=== PATIENT | male | born 1940 | race Caucasian/White ===

== ENCOUNTER → 2017-01-22 | Outpatient (CLI) | payer OTHER ==
[~2017-01-22] MED LIST: ALPRAZOLAM1 M2 PO; ATORVASTATIN CA40 MG PO; CARB/LEVO PO; CARDIZEM CD180 MG PO; CARISOPRODOL 3350 M1 PO; CARISOPRODOL 3350 MG PO; CARTIA XT180 M1 PO; CIPRO500 MG PO; CLONAZEPAM 0.50.5 M1 PO; CLONIDINE PO; CLONIDINE0.1 PO; DILAUDID2 MG PO; DILT-XR180 MG PO; FLAGYL500 MG PO; HYDROCODON-ACE1 EAC5 PO; HYDROCODONE-AP1 EAC6 PO; KLONOPIN0.5 MG PO; KLOR-CON 10 ER10 MEQ PO; KLOR-CON 1010 MEQ PO; LASIX 20 MG TAB20 MG PO; LASIX 40 MG TAB40 M2 PO; LEXAPRO 10 MG T10 M2 PO; LEXAPRO20 MG PO; LIORESAL 10 MG10 MG PO; LISINOPRIL10 MG PO; METOLAZONE 2.52.5 M1 PO; MIRAPEX0.5 MG PO; MOBIC15 MG PO; MORPHINE PUMP; MORPHINE SULFAT15 M3 PO; NEURONTIN 300300 M1 PO; NEURONTIN 400400 M1 PO; NORCO 10-325 T1 EAC1 PO; NORCO 10-325 T1 EACH PO; PAIN PUMP; POTASSIUM20 PO; PRAMIPEXOLE PO; REMERON 30 MG T30 M1 PO; REMERON15 MG PO; RYTARY ER 36.21 EACH PO; SIMVASTATIN40 MG PO; SINEMET 25-1001 EAC1 PO; SINEMET CR 50/21 TAB PO; SPIRIVA INH; VOLTAREN GEL 1100 G2 TOP; XANAX 0.5 MG0.5 M1 PO; XANAX1 MG PO; ZANAFLEX4 MG PO; ZOCOR40 MG PO; [UNRECOGNIZED DRUG - OTHER] MC
--- NOTE | 2017-01-24 09:35 | PAINCON ---
[address] [address] PAIN MANAGEMENT CONSULTATION Name: ELVIE ECHAVARRIA Room: [facility] Jenise#: [id number] Admission: 01/22/17 Attend Phys: Grace Rodriguez Discharge: Date of : 40 Report #: [id number] THIS REPORT FOR: //name// CC: Juarez Gan The patient is a very pleasant 76-year-old gentleman long known to the pain clinic for symptomatic lumbar radiculopathy, status post decompressive laminectomy, has an intrathecal pump in place. He was seen on 01/15/2017 with increasing lumbar radicular pain. We elected to move forward with epidural injection under fluoroscopy today. He presents to the pain clinic today noting pain continues to be problematic and rates it at a 5 on a VAS. The pain is primarily low back, right buttock and leg. PHYSICAL EXAMINATION: Unchanged from last visit, 5 feet 8 inches, 188 pound gentleman. Blood pressure 146/90 and pulse 79. Moderately antalgic gait, positive straight leg raise on the right with decreased strength to plantar flexion and lower extremity flexion. ASSESSMENT: Symptomatic lumbar radiculopathy, status post decompressive laminectomy. PROCEDURE: Lumbar epidural injection under fluoroscopy. PROCEDURE NOTE: After both written and informed consent to include risk of spinal cord damage, increased pain, weakness and dural puncture, the patient was taken to the fluoroscopy suite, placed in the prone position. After sterile prep and drape, a skin wheal with lidocaine was raised. A 22-gauge epidural Tuohy needle was inserted in the midline at L4-L5 with good loss to resistance. Negative aspiration for cerebrospinal fluid or blood was noted. Then 1 mL of Omnipaque under biplanar fluoroscopy showed good spread within the epidural space. This was followed with 80 mg of triamcinolone plus 1 mL of 1.5% preservative-free Xylocaine, 0.5 mL Xylocaine was then injected to flush the needle; it was removed. The patient was monitored for an appropriate period of time and discharged in good and stable condition. Discharged in stable condition. Follow up in 4 weeks for reevaluation earlier if needed. <ELECTRONICALLY SIGNED> By: Galo Gan DO 01/24/17 0935 [id number] 0101Galo Gan DO /nt
== END ==
LOC: M.PC 03:36
DX: M54.16 Radiculopathy, lumbar region (principal); M96.1 Postlaminectomy syndrome, not elsewhere classified

== ENCOUNTER → 2017-02-19 | Outpatient (CLI) | payer OTHER ==
--- NOTE | 2017-02-21 09:59 | PAINCON ---
[address] [address] PAIN MANAGEMENT CONSULTATION Name: ECHAVARRIAELVIE Lopez Room: [facility] EDNA Burden#: [id number] Admission: 02/19/17 Attend Phys: Garce Rodriguez Discharge: Date of : 40 Report #: [id number] THIS REPORT FOR: //name// CC: Juarez Gan DATE OF SERVICE: 02/19/2017 The patient is a very pleasant 76-year-old gentleman, being treated for lumbar radiculopathy status post decompressive laminectomy, requiring high risk complex medication management, intrathecal pump management. He has a comorbidity of Parkinson disease and degenerative joint disease affecting bilateral hips and knees. Last seen in pain clinic 01/22/2017. Did an epidural injection for ongoing radicular symptoms. Last intrathecal pump refill was 12/25/2016. The patient returns to pain clinic today. He has pain that continues to be problematic. Epidural injection only afforded some nominal relief. We tried rotating to morphine immediate release for breakthrough pain, though the patient notes that this was not effective and caused some GI issues. He discontinued that agent. He is continuing with hydrocodone for breakthrough pain. Last visit, I tried rotating from Xanax to Klonopin at bedtime for insomnia. The patient notes that this has been not well tolerated at all either. He is having some increasing Parkinson disease overtime. He is seeing a new neurologist. He did ask today that I renew his Sinemet, he has been stable on this dose for some time, 25/100 mg tablets, 2 tablets 3 times a day. In absence of his neurologist at present, I will renew that prescription, but did mandate the patient to follow up with his neurologist. PHYSICAL EXAMINATION: Shows 5 feet 8 inches, 190 pound gentleman, BMI is 28.9 kilograms per meter squared. Blood pressure 154/77, pulse 70, respirations 16. Moderately endomorphic build, though he has lost a fair bit of weight, rises from chair using armrest, antalgic gait, does have a little parkinsonian tremor, has a little loss of proprioception in lower extremity; however, lower extremity strength is generally symmetric. Modestly positive straight leg raise on the right. We reviewed the fact that opiate medications are being used to provide analgesia adequate to support activities of daily living, not attempting to achieve a specific pain score on the 0-10 Visual Analog Scale. The current opiate medications are providing sufficient analgesia [place] [address] PAIN MANAGEMENT CONSULTATION Name: ELVIE ECHAVARRIA Room: [facility]#: [id number] Admission: 02/19/17 Attend Phys: Grace Rodriguez Discharge: Date of : 40 Report #: [id number] participate in activities of daily living. The patient is not exhibiting any aberrant behavior suggestive of drug diversion. The patient is not having any adverse reactions to medications. The patient is not suffering from daytime somnolence or mental acuity changes. The patient is managing opiate-induced constipation with appropriate pmku-iam-apcpusu agents and dietary considerations. The patient was counseled on concern for caution with operating a motor vehicle while using opiate medications. A physical exam was performed and the patient's functional status was evaluated. All patients with back pain were advised against the bed rest greater than 4 days and were advised to return to normal activities. Pain score assessment was noted and the treatment plan was reviewed with the patient. All current medications, both prescribed and OTC were reviewed and reconciled on the electronic medical record. Tobacco screening was accomplished and smoking cessation was advised when indicated. BMI was noted and diet/exercise modification was recommended for all patients following outside normal parameters. I reviewed with the patient today their responsibilities to safeguard prescription medications, reviewed their responsibility to utilize medications only as prescribed by the physician. They are to seek and receive pain medications only from 1 physician group ( [facility]). They are to use 1 pharmacy and keep the clinic informed if they change pharmacies. Their responsibilities include making followup visits in a timely fashion and to avoid abrupt discontinuation of medication usage. Their responsibilities further include bringing their medications (bottles from the pharmacy with residual pills) to the visit for possible confirmation of pill counts and the patient understands it is their responsibility to submit to random drug screens to ensure both that the medications prescribed are present, and that no other controlled substances are present. All prescriptions provided today were generated electronically. ASSESSMENT: Symptomatic lumbar radiculopathy status post decompressive laminectomy, axial back pain requiring high risk complex medication management and intrathecal pump management, and comorbidity of Parkinson disease. RECOMMENDATIONS: 1. Discontinue Klonopin, will resume Xanax 0.5 at bedtime. 2. I have taken the liberty of renewing his Sinemet as noted in the body of the dictation. 3. Continue hydrocodone p.r.n. for breakthrough pain, does not require prescription for same. PROCEDURE: Intrathecal pump reprogrammed, currently has a flex program from about 5:00 p.m. through midnight. Overall, total daily dose is 2.83 mg. I increased the pump 7% overall by adding [place] [address] PAIN MANAGEMENT CONSULTATION Name: ELVIE ECHAVARRIA Room: [facility]#: [id number] Admission: 02/19/17 Attend Phys: Grace Rodriguez Discharge: Date of : 40 Report #: [id number] midnight to 6:00 a.m. at 0.14 mg per hour. Again, this increases the overall daily dosage from 2.83 to 3.015 mg per day. The patient is discharged today in good stable condition; new refill date is now 05/03/2017. Follow up at that time, earlier if needed. <ELECTRONICALLY SIGNED> By: Galo Gan DO 02/21/17 0959 1222 1740Galo Gan DO /nt
== END | disposition home or self-care (01) ==
LOC: M.PC 02:32
DX: M54.16 Radiculopathy, lumbar region (principal); M17.0 Bilateral primary osteoarthritis of knee; M16.0 Bilateral primary osteoarthritis of hip; G20 Parkinson's disease; Z79.891 Long term (current) use of opiate analgesic; Z98.890 Other specified postprocedural states

== ENCOUNTER → 2017-04-30 | Outpatient (CLI) | payer MEDICARE, OTHER ==
--- NOTE | 2017-05-05 07:00 | PAINCON ---
[address] [address] PAIN MANAGEMENT CONSULTATION Name: ELVIE ECHAVARRIA Room: [facility] E[facility] Burden#: [id number] Admission: 04/30/17 Attend Phys: Grace Rodriguez Discharge: Date of : 40 Report #: [id number] THIS REPORT FOR: //name// CC: Juarez Gan DATE OF SERVICE: 04/30/2017 The patient is a very pleasant 76-year-old gentleman, long known to the pain clinic, being treated for axial back pain, lumbar radiculopathy, status post decompressive laminectomy, chronic anxiety. Axial back pain, component of Parkinson's, which seems to be getting a little bit worse. Requires intrathecal pump management. Has an intrathecal pump, last filled 12/25/2016. At last visit 02/19/2017, we did increase the pump 7%, currently has a flex dose delivering a total daily dose of 3.015 mg of morphine a day. The patient returns to pain clinic today. His Parkinson's is getting a little bit worse. He did fall one time going up the stairs since we last saw him. He does have an appointment, I believe next month to see a new neurologist. May need a dose adjustment on his parkinsonian medications. He does struggle with some chronic anxiety concerns. I rotated from Klonopin to Xanax 0.5 mg. This was denied by his insurance company as the primary diagnosis appeared as insomnia, it is primarily for anxiety concerns. Axial back pain continues to be problematic with some spasm. Insurance company did deny Soma, I am actually relatively happy they did this as Soma can be a little bit of a dangerous agent with metabolite being meprobamate, which is somewhat habituating. We will rotate to baclofen 10 mg t.i.d. for spasm on a p.r.n. basis. He does take hydrocodone 10/325 maximum of 4 a day. With the Medtronic intrathecal pumps, we know they tend to over-deliver a little bit immediately after fill, they tend to under-deliver a little bit near the end of the fill cycle. In respect to this, the patient typically takes less hydrocodone immediately after the pump fill and does take hydrocodone a little more frequently near the end of the cycle. Again, he is on about of 4-month fill cycle. PHYSICAL EXAMINATION: Does note a pleasant 76-year-old gentleman, moderately endomorphic build. Does have parkinsonian tremor and shuffle. He is alert and oriented. Does suffer with a little anxiety. Has a bit of a stutter, which predated the Parkinson's. Has diffuse axial back pain. The lower extremity strength is generally preserved. Subjective pain score is 6 on a VAS. Vital signs are stable as noted in the medical record. He is alert and oriented to person, place and time, judged [place] [address] PAIN MANAGEMENT CONSULTATION Name: JERICHOELVIE H Room: [facility] E[facility] Burden#: [id number] Admission: 04/30/17 Attend Phys: Grace Rodriguez Discharge: Date of : 40 Report #: [id number] He does not use tobacco products. Medication list was reconciled today. We reviewed the fact that opiate medications are being used to provide analgesia adequate to support activities of daily living, not attempting to achieve a specific pain score on the 0-10 Visual Analog Scale. The current opiate medications are providing sufficient analgesia to allow the patient to participate in activities of daily living. The patient is not exhibiting any aberrant behavior suggestive of drug diversion. The patient is not having any adverse reactions to medications. The patient is not suffering from daytime somnolence or mental acuity changes. The patient is managing opiate-induced constipation with appropriate jigk-owf-gbgawvy agents and dietary considerations. The patient was counseled on concern for caution with operating a motor vehicle while using opiate medications. A physical exam was performed and the patient's functional status was evaluated. All patients with back pain were advised against the bed rest greater than 4 days and were advised to return to normal activities. Pain score assessment was noted and the treatment plan was reviewed with the patient. All current medications, both prescribed and OTC were reviewed and reconciled on the electronic medical record. Tobacco screening was accomplished and smoking cessation was advised when indicated. BMI was noted and diet/exercise modification was recommended for all patients following outside normal parameters. I reviewed with the patient today their responsibilities to safeguard prescription medications, reviewed their responsibility to utilize medications only as prescribed by the physician. They are to seek and receive pain medications only from 1 physician group ( [facility]). They are to use 1 pharmacy and keep the clinic informed if they change pharmacies. Their responsibilities include making followup visits in a timely fashion and to avoid abrupt discontinuation of medication usage. Their responsibilities further include bringing their medications (bottles from the pharmacy with residual pills) to the visit for possible confirmation of pill counts and the patient understands it is their responsibility to submit to random drug screens to ensure both that the medications prescribed are present, and that no other controlled substances are present. All prescriptions provided today were generated electronically. ASSESSMENT: Lumbar radiculopathy, status post decompressive laminectomy, chronic pain requiring complex medication management, intrathecal pump management, axial back pain and anxiety. RECOMMENDATIONS: 1. Continue Xanax 0.5 mg 1 a day. 2. Rotate from Soma to baclofen 10 mg up to t.i.d. only as needed for spasm. Continue hydrocodone 10/325 up to 4 a day as needed for breakthrough pain. [address] [address] PAIN MANAGEMENT CONSULTATION Name: ELVIE ECHAVARRIA Room: [facility]#: [id number] Admission: 04/30/17 Attend Phys: Grace Rodriguez Discharge: Date of : 40 Report #: [id number] Pump refill by the nurse today. The pump was refilled by the RN, Irene under my direct supervision in a sterile fashion using a Medtronic refill kit. Frequent aspiration showed easy return of the injectate. Pump was reprogrammed to deliver current rate at 3.015 mg of morphine a day via a flex program delivering a little more infusate in the evening hours. The needle was removed. The area was cleansed, Band-Aids applied. The patient monitored for an appropriate period of time, discharged in good and stable condition. <ELECTRONICALLY SIGNED> By: Galo Gan DO 05/05/17 0700 0840 0916Galo Gan DO /nt
== END | disposition home or self-care (01) ==
LOC: M.PC 01:20
DX: Z45.1 Encounter for adjustment and management of infusion pump (principal); M54.16 Radiculopathy, lumbar region; Z98.890 Other specified postprocedural states; F41.9 Anxiety disorder, unspecified; Z79.899 Other long term (current) drug therapy; G20 Parkinson's disease; M96.1 Postlaminectomy syndrome, not elsewhere classified

== ENCOUNTER 2017-05-04 04:19 | Emergency (ER) | payer MEDICARE, OTHER ==
[~2017-05-04] VITALS: Ht 180.3 cm; Wt 87.1 kg
[~2017-05-04 04:19] MED LIST changes: -CARTIA XT180 M1 PO; -CIPRO500 MG PO; -FLAGYL500 MG PO; -NORCO 10-325 T1 EAC1 PO; -RYTARY ER 36.21 EACH PO; -ZANAFLEX4 MG PO
[2017-05-04 04:37] VITALS: BP 128/74
[2017-05-04] MEDS ORDERED: CARISOPRODOL 3350 MG PO (04:42)
[2017-05-04] MEDS ORDERED: NORCO 10-325 T1 EACH PO (04:42)
[2017-05-04] MEDS ORDERED: CARTIA XT180 M1 PO (04:42)
[2017-05-04 05:04] LABS: URINE BILIRUBIN NEGATIVE (Negative); URINE BLOOD NEGATIVE (Negative); URINE CLARITY CLEAR; URINE COLOR YELLOW; URINE GLUCOSE-RANDOM NEGATIVE (Negative); URINE KETONES TRACE (Negative); URINE LEUKOCYTES-REFLEX NEGATIVE (Negative); URINE NITRITE-REFLEX NEGATIVE (Negative); URINE PROTEIN NEGATIVE (Negative)
[2017-05-04 05:07] LABS: ABSOLUTE BASOPHILS 0.1 thou/uL (0.0-0.2); ABSOLUTE EOSINOPHILS 0.2 thou/uL (0.0-0.7); ABSOLUTE LYMPHOCYTES 1.4 thou/uL (0.8-5.3); ABSOLUTE MONOCYTES 0.4 thou/uL (0.0-1.2); ABSOLUTE NEUTROPHILS 2.6 thou/uL (1.6-8.1); BASOPHILS 1.1 %; EOSINOPHILS 3.9 %; HEMATOCRIT 39.9 % (42.0-52.0); HEMOGLOBIN 13.2 gm/dL (14.0-18.0); LYMPHOCYTES 30.4 %; MCH 29.6 pg (26.0-34.0); MCV 89.7 fL (80.0-100.0); MONOCYTES 9.4 %; MPV 6.5 fl. (7.2-11.1); NUCLEATED RBCS 0 /100WBC; PLATELET COUNT* 222 thou/uL (150-400); POLYS 55.2 %; RBC 4.45 mil/uL (4.50-6.00); RDW-CV 14.2 % (10.5-14.5); WBC 4.7 thou/uL (4.0-11.0)
[2017-05-04 05:21] LABS: ANION GAP 8 mmol/L (7-16); BUN 16 mg/dL (7-18); CALCIUM 8.4 mg/dL (8.5-10.1); CHLORIDE 108 mmol/L (98-107); CO2 29 mmol/L (21-32); CREATININE 0.6 mg/dL (0.6-1.3); GLUCOSE 106 mg/dL (70-99); POTASSIUM 3.7 mmol/L (3.5-5.1); SODIUM 145 mmol/L (136-145)
[2017-05-04 05:28] LABS: ALBUMIN 3.4 g/dL (3.4-5.0); ALKALINE PHOSPHATASE 62 U/L (46-116); LIPASE 81 U/L (73-393); SGOT 15 U/L (15-37); SGPT 9 U/L (30-65); TOTAL BILIRUBIN 0.4 mg/dL (<0.1-1.0); TOTAL PROTEIN 6.3 g/dL (6.4-8.2); TROPONIN-I LEVEL <0.06 ng/mL (<0.06)
--- NOTE | 2017-05-04 09:12 | NUR ---
PT IS WANTING TO LEAVE AND NOT BE ADMITTED. DR. AIKEN CONTACTED AND WILL SEE THE PT.
--- NOTE | 2017-05-04 12:46 | EKG ---
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 : 1940 Requested By: Jony Paredes Order Number: [id number] MD: Lavell Peoples Measurements Intervals Dawn Rate: 48 P: 57 UT: 237 QRS: 13 QRSD: 101 T: 8 QT: 439 QTc: 393 Interpretive Statements Sinus bradycardia Atrial premature complex Prolonged UT interval Compared to ECG 12/07/2015 10:07:34 Atrial premature complex(es) now present First degree AV block now present Sinus rhythm no longer present Right ventricular hypertrophy no longer present Electronically Signed On 05-04-2017 12:46:40 CDT by Lavell Peoples [email or web address] <ELECTRONICALLY SIGNED> By: Lavell Peoples MD, FAC 05/04/17 1246 9 9 Lavell Peoples MD, FAC /EPI
[2017-05-04 13:30] VITALS: BP 135/66
[2017-05-04] MEDS ORDERED: CIPRO500 MG PO (13:54)
[2017-05-04] MEDS ORDERED: FLAGYL500 MG PO (13:55)
[2017-05-04 14:01] VITALS: BP 141/71
[2017-05-04 15:04] VITALS: BP 141/71
--- NOTE | 2017-05-04 15:09 | NUR ---
DISCHARGED AMBULATING WITH FAMILY. PRESCRIPTION GIVEN FOR CIPRO & FLAGYL. BELONGINGS TAKEN WITH PATIENT.
[2017-06-25] MEDS ORDERED: NORCO 10-325 T1 EACH PO (08:33)
[2017-06-25] MEDS ORDERED: ZANAFLEX4 MG PO (08:33)
[2017-06-25] MEDS ORDERED: XANAX 0.5 MG0.5 M1 PO (08:33)
[2017-08-06] MEDS ORDERED: ZANAFLEX4 MG PO (09:11)
[2017-08-06] MEDS ORDERED: XANAX 0.5 MG0.5 M1 PO (09:11)
[2017-08-06] MEDS ORDERED: NORCO 10-325 T1 EACH PO (09:11)
[2017-08-06] MEDS ORDERED: NORCO 10-325 T1 EAC1 PO (09:11)
[2017-08-06] MEDS ORDERED: RYTARY ER 36.21 EACH PO (16:08)
[2017-08-06] MEDS ORDERED: LIORESAL 10 MG10 MG PO (16:09)
[2017-08-06] MEDS ORDERED: VOLTAREN GEL 1100 G2 TOP (16:09)
[2017-08-06] MEDS ORDERED: KLOR-CON 1010 MEQ PO (16:10)
[2017-08-06] MEDS ORDERED: LASIX 40 MG TAB40 M2 PO (16:10)
== END 2017-05-04 15:07 | disposition home or self-care (01) ==
LOC: M.ERS 04:19 → M.TBA-ER 07:08 → M.ERS 15:07
PROVIDERS: Emergency Medicine Emergency Medical Services
DX: R10.31 Right lower quadrant pain (principal); G20 Parkinson's disease; I48.91 Unspecified atrial fibrillation; I10 Essential (primary) hypertension; G25.81 Restless legs syndrome; Z85.828 Personal history of other malignant neoplasm of skin; Z96.651 Presence of right artificial knee joint; Z88.1 Allergy status to other antibiotic agents; Z88.5 Allergy status to narcotic agent; Z88.8 Allergy status to other drugs, medicaments and biological substances

== ENCOUNTER → 2017-06-25 | Outpatient (CLI) | payer MEDICARE, OTHER ==
[~2017-06-25] MED LIST changes: +CARTIA XT180 M1 PO; +CIPRO500 MG PO; +FLAGYL500 MG PO; +NORCO 10-325 T1 EAC1 PO; +RYTARY ER 36.21 EACH PO; +ZANAFLEX4 MG PO
--- NOTE | 2017-06-26 07:19 | PAINCON ---
[address] [address] PAIN MANAGEMENT CONSULTATION Name: ELVIE STAFFORD Room: [facility] EDNA Burden#: [id number] Admission: 06/25/17 Attend Phys: Grace Rodriguez Discharge: Date of : 40 Report #: [id number] THIS REPORT FOR: //name// CC: Juarez Gan DATE OF SERVICE: 06/25/2017 The patient is a very pleasant 76-year-old gentleman, long treated for lumbar radiculopathy status post decompressive laminectomy with chronic axial back pain. He has an intrathecal pump in place. The patient was seen for prolonged visit today from 08:10-08:40. Greater than 50% of this time was spent counseling the patient and reviewing therapeutic options. The patient presents to pain clinic today for ongoing medication management. He has an intrathecal pump in place. This was implanted by myself many years ago and revised by Dr. Zavaleta approximately 2 years ago. The predicted pump life is about 3 years (36 months). I will be leaving the practice area and I will ask Dr. Love to endeavor to help us find a pain management physician to continue to manage the patient's pump as it has been quite efficacious for him. The patient does return to the Pain Clinic today. He notes overall functional status is good. He has been actively losing weight. He is down to 185 pounds. His goal is 180 pounds. He does note that immediately after filling the pump, he does a little bit better and near the end of the pump refill cycle, seems to have a little more pain. Again, this phenomenon has been noted with [employer] pumps. They do tend to deliver a little more at the beginning of the cycle and a little less at the end of cycle. We have consistently managed the patient by increasing his pump about mid cycle anywhere from 7-10% with great caution noted to decrease the infusate on refill back to the pre-increased settings. PHYSICAL EXAMINATION: Today notes a pleasant 76-year-old gentleman. Again, he has been losing weight and increasing activity. Vital signs are stable. He does have a notable parkinsonian tremor, which seems to be getting worse. He tells me he is being switched on his Parkinson medicine to Rytary (an extended release carbidopa-levodopa product). He is hopeful that he will continue to get a little better control of his tremor. He has not fallen since we last saw him, but his gait is a little tenuous. It is tandem. Lower extremity strength is symmetric. Lumbar flexion is modestly limited. Diffuse tenderness across the low back. He is otherwise alert and [facility] [address] [place] [address] PAIN MANAGEMENT CONSULTATION Name: ELVIE STAFFORD Room: [facility] EDNA Burden#: [id number] Admission: 06/25/17 Attend Phys: Grace Rodriguez Discharge: Date of : 40 Report #: [id number] oriented to person, place and time. We reviewed the fact that opiate medications are being used to provide analgesia adequate to support activities of daily living, not attempting to achieve a specific pain score on the 0-10 Visual Analog Scale. The current opiate medications are providing sufficient analgesia to allow the patient to participate in activities of daily living. The patient is not exhibiting any aberrant behavior suggestive of drug diversion. The patient is not having any adverse reactions to medications. The patient is not suffering from daytime somnolence or mental acuity changes. The patient is managing opiate-induced constipation with appropriate [id number]-ymuxcph agents and dietary considerations. The patient was counseled on concern for caution with operating a motor vehicle while using opiate medications. A physical exam was performed and the patient's functional status was evaluated. All patients with back pain were advised against the bed rest greater than 4 days and were advised to return to normal activities. Pain score assessment was noted and the treatment plan was reviewed with the patient. All current medications, both prescribed and OTC were reviewed and reconciled on the electronic medical record. Tobacco screening was accomplished and smoking cessation was advised when indicated. BMI was noted and diet/exercise modification was recommended for all patients following outside normal parameters. I reviewed with the patient today their responsibilities to safeguard prescription medications, reviewed their responsibility to utilize medications only as prescribed by the physician. They are to seek and receive pain medications only from 1 physician group ( [facility]). They are to use 1 pharmacy and keep the clinic informed if they change pharmacies. Their responsibilities include making followup visits in a timely fashion and to avoid abrupt discontinuation of medication usage. Their responsibilities further include bringing their medications (bottles from the pharmacy with residual pills) to the visit for possible confirmation of pill counts and the patient understands it is their responsibility to submit to random drug screens to ensure both that the medications prescribed are present, and that no other controlled substances are present. All prescriptions provided today were generated electronically. ASSESSMENT: Symptomatic lumbar radiculopathy status post decompressive laminectomy with ongoing axial low back pain, chronic anxiety, Parkinson's disease as a comorbidity requiring intrathecal pump management. RECOMMENDATION: 1. Continue intrathecal pump with caveat that we will increase 7%. Currently, the pump is delivering a combination of hydromorphone 10 mg per mL and clonidine 300 mcg per mL. He does have a Flex program delivering a basal rate of 0.[address] [place] [address] PAIN MANAGEMENT CONSULTATION Name: ELVIE STAFFORD Room: [facility] Jenise#: [id number] Admission: 06/25/17 Attend Phys: Grace Rodriguez Discharge: Date of : 40 Report #: [id number] per hour with 2 Flex programs, 1 starting at midnight and running for 6 hours slightly increasing the rate to 0.140 mg per hour. He has a second Flex program starting about 5:00 p.m. (1700 hours) and running to midnight, increasing the pump to 0.139 mg per hour. This enables an increased overall infusate from 5:00 p.m. to 6:00 a.m. Gives him a little better pain relief when he wakes up and lowers infusate throughout the waking hours. Today, we did increase this by 6%. Again, when we refill the pump at the end of July, we will take great caution and care to note that we need to decrease the infusate back to the current basal rate. I did take the liberty today to renew hydrocodone 10/325 up to 4 a day. Use this for breakthrough pain. We had trialled rotating from Soma to baclofen as insurance had suggested we discontinue the Soma. Unfortunately, baclofen really does not afford much efficacy. We elected to trial tizanidine 4 mg 1/2 to 1 tablet 3 times a day for muscle spasm. We will continue Xanax 0.5 at bedtime for chronic anxiety. Discharged in good and stable condition. Again, we will ask Dr. Love to assist with finding a Pain Clinic physician in the [place] system to continue to manage the patient's pump. If, however, they cannot find said physician, I might recommend contactin. Dr. Danis Kitchen who works at the [employer], 2. [facility], who have a clinic near [facility] or 3. Dr. Kerwin Reyez at [facility]. My partner, Dr. Karl Zavaltea does manage intrathecal pumps; however, I understand he will probably be retiring in 1-2 years and it would seem reasonable if we are going to warp changer of the pump presently that we can simply do it one time, i.e. find a doc that can take care of Mr. Stafford for the life of the pump. This, I believe, would be in the patient's better interest. Discharged in good and stable condition after approximately 30 minutes spent counseling the patient, reviewing therapeutic options and medication management concerns. <ELECTRONICALLY SIGNED> By: Galo Gan DO 06/26/17 0719 [id number] [id number] Gan DO /nt
== END | disposition home or self-care (01) ==
LOC: M.PC 03-19 08:00
DX: Z45.1 Encounter for adjustment and management of infusion pump (principal); G20 Parkinson's disease; M54.16 Radiculopathy, lumbar region; Z98.890 Other specified postprocedural states; M54.5 Low back pain; G89.29 Other chronic pain; F41.9 Anxiety disorder, unspecified; Z79.899 Other long term (current) drug therapy

== ENCOUNTER → 2017-08-06 | Outpatient (CLI) | payer MEDICARE, OTHER ==
--- NOTE | 2017-08-07 07:27 | PAINCON ---
[facility] [address] [place] [address] PAIN MANAGEMENT CONSULTATION Name: ECHAVARRIAELVIE John Room: [facility] EDNA Burden#: [id number] Admission: 08/06/17 Attend Phys: Grace Rodriguez Discharge: Date of : 40 Report #: [id number] THIS REPORT FOR: //name// CC: Dale Gan DATE OF SERVICE: 08/06/2017 HISTORY OF PRESENT ILLNESS: The patient is a very pleasant 76-year-old gentleman, long known to the pain clinic for symptomatic lumbar radiculopathy status post decompressive laminectomy, axial back pain, chronic pain syndrome requiring complex medication management. Has an intrathecal pump. The patient returns to pain clinic today for intrathecal pump refill. We had a prolonged visit today reviewing end of life issues and advanced care planning. The patient has ongoing Parkinson's. His carbidopa/levodopa has been discontinued. He has been started on Rytary. His tremor is indeed a slight bit better, but he still has some daytime sedation and some subjective vertigo and "dizziness." The patient also tells me concerningly that he has been diagnosed with an intracranial aneurysm. It sounds like it is about 5 mm. He has a followup appointment with interventional radiologist scheduled next month. He notes as he has often near the end of his pump refill cycle that the pump is a little less efficacious. He rates his pain as 6 on a VAS ranging from a 4-7. Continued his hydrocodone 10/325, taking up to 4 a day recently. PHYSICAL EXAMINATION: GENERAL: Shows a pleasant 76-year-old gentleman, 5 feet 11 inches, 182 pounds, he has been actively dieting to try and lose weight, BMI is 25 kilograms per meter squared. VITAL SIGNS: Blood pressure on EMR, pulse 68, respiratory rate 16. NEUROLOGIC: Again, his tremor is modestly better. He does appear sedate and fairly frail. MUSCULOSKELETAL: He rises from chair using armrest, has a somewhat ataxic gait. Lower extremity strength is diminished, but symmetric. Diffuse tenderness across the low back. Long discussion with the patient today. He is aware of end of life concerns. Several years ago, he and his purchased a burial plans. He has a prepaid arrangement. We discussed end of life decisions regarding extraordinary means. He is actively expressed to his and [place] [address] PAIN MANAGEMENT CONSULTATION Name: KATHE ECHAVARRIAALD John Room: [facility]#: [id number] Admission: 08/06/17 Attend Phys: Grace Rodriguez Discharge: Date of : 40 Report #: [id number] not want to be intubated, he does not want to be resuscitated. He very much wants to stay at home as long as he can. His has a DPOA as does one of their daughters. Presently, the patient is doing reasonably well. He appears to be functioning adequately at home. He has become less and less active, starting to see a little deconditioning. He had been quite active over a number of past years, helping his daughter building a deck on her house, etc. Past year or so has seen a significant decline in his health. We spent approximately 25 minutes today reviewing the end of life issues, discussing advance care planning. Intrathecal pump was refilled today under my supervision. The pump was accessed using the [employer] refill kit. Refilled with 40 mL of the new injectate containing hydromorphone 10 mg/mL and clonidine 300 mcg/mL. Infusion rate was continued at current rate (I had increased it about 6% at last visit). He has a flexible rate delivering a total of 3.206 mg hydromorphone and 96.17 mcg of clonidine a day. The basal infusion rate is 0.116 mg hydromorphone an hour. The first flex program begins at midnight and runs for 6 hours, increasing the basal rate to 0.149 mcg an hour. Second basal rate starts at 1700 hours and runs for 7 hours, increasing the basal rate to 0.148 mg per hour. This effectively gives him approximately 28% increase in the basal rate from 5:00 p.m. to 6:00 a.m. We had done this to enable him to have more pain relief in the evening and to awake with less pain in the morning. Frequent aspiration showed easy return of the injectate. Pump was reprogrammed to deliver the current rate. His next refill date is 12/02/2017. LATOSHA on the pump is 36 months. I have taken the liberty of renewing hydrocodone 10/325 up to 4 tablets a day, 2 prescriptions to deliver 120 tablets presently and release in 4 weeks. We will have him follow up in [address] Henri Jimenes for ongoing medication management. We will have him follow up with Dr. Violet Zavaleta at [facility] for intrathecal pump refill. Dr. Zavaleta was kind enough to replace the pump a few years ago. Discharged in good and stable condition. <ELECTRONICALLY SIGNED> By: Galo Gan DO 08/07/17 0727 1308 [facility]6[place] Boris Gan DO /nt
== END | disposition home or self-care (01) ==
LOC: M.PC 04:59
DX: Z45.1 Encounter for adjustment and management of infusion pump (principal); G89.4 Chronic pain syndrome; M54.16 Radiculopathy, lumbar region; Z98.890 Other specified postprocedural states; Z79.899 Other long term (current) drug therapy; Z79.891 Long term (current) use of opiate analgesic; Z88.8 Allergy status to other drugs, medicaments and biological substances

== ENCOUNTER → 2018-03-17 | Outpatient (CLI) | payer MEDICARE, OTHER ==
[~2018-03-17] MED LIST changes: +HYDROCODONE-AP1 EA11 PO
--- NOTE | ~2018-03-17 | PAINCON ---
[address] [address] PAIN MANAGEMENT CONSULTATION Name: ELVIE ECHAVARRIA Room: [facility] EDNA Burden#: [id number] Admission: 03/17/18 Attend Phys: Gina Jimenes MD Discharge: Date of : 40 Report #: [id number] THIS REPORT FOR: //name// CC: Dale Jimenes DATE OF SERVICE: 03/17/2018 CHIEF COMPLAINT: Low back pain. HISTORY: The patient is a 77-year-old gentleman, who has been seen in the pain clinic in the past. This is my first visit with the patient. He has been followed by Dr. Galo Gan. He has history of back problems. He has had a spinal cord pump placed. He is status post decompressive laminectomy, continues to have axial back pain and chronic pain syndrome requiring complex medical management. The intrathecal pump has been helpful. The patient has ongoing Parkinson's disease. He was on carbidopa/levodopa, this medication has been discontinued. The patient states that he does have an intracranial aneurysm, size was about 5 mm. At this time, the patient feels that the treatment is about 50/50. At this point, he would rather live with the aneurysm. He finds that his current medical regimen of hydrocodone 7.5 mg tablets are efficacious. He would like to continue with his medications through the pain clinic. His pain pump has been discontinued, this was removed in 2018. PAST MEDICAL HISTORY: Parkinson's disease, atrial fibrillation, myocardial infarct x 3, hypertension, skin cancer, and restless leg syndrome. PAST SURGICAL HISTORY: Angioplasty, ____; back surgery x 3 in 1998 and zero in 2000 and 2011, right knee replacement, rotator cuff surgery, umbilical hernia surgery, heel surgery, oral surgery, spinal infusion pump placement, spinal cord pump removal. CURRENT MEDICATIONS: Alprazolam 0.5 mg at bedtime, carbidopa/levodopa 25/100, carisoprodol 350 mg t.i.d., diltiazem 180 mg, hydrocodone 7.5 mg 1 p.o. q.i.d., and potassium 10 mEq. ALLERGIES: THE PATIENT IS ALLERGIC TO HEPARIN ANALOGS, OXYCODONE, ZOLPIDEM, AND CEFEPIME. PAIN CLINIC ASSESSMENT AND PQRS: 1. The patient has some chronic pain and arthritic changes in his left hip. He has had a knee replacement. He is not being treated for rheumatoid arthritis. 2. Pain intensity is 5/10. 3. Fall risk. The patient has not fallen in the last 3 months. 4. Blood thinner. The patient is not on a blood thinning medication. 5. Hypertension. The patient is not being treated [place] [address] PAIN MANAGEMENT CONSULTATION Name: ELVIE ECHAVARRIA Room: [facility]#: [id number] Admission: 03/17/18 Attend Phys: Gina Jimenes MD Discharge: Date of : 40 Report #: [id number] 6. Opioids greater than 6 weeks. The patient receive his medication from [facility], the pain clinic. 7. Risk assessment tool, low for opioid use. 8. Functional assessment tool. 9. Recreational drug use. The patient denies use of recreational drugs. 10. Tobacco: The patient does not smoke. 11. Alcohol: The patient denies use of alcoholic beverages. PHYSICAL EXAMINATION: GENERAL: The patient is a well-developed white male. He appears his stated age. He is alert and oriented x 3. Affect is appropriate. Speech is fluent. He has some movements could characteristic of Parkinson's disease. Height is 5 feet 8 inches, weight is 201 pounds, and BMI is 30. VITAL SIGNS: Blood pressure is 131/84, heart rate is 74, respiratory rate is 16, room air saturation is 94%, and temperature is 97.6. HEART: Heart rate is regular. History of atrial fibrillation. MUSCULOSKELETAL: Upper extremity muscle strength is judged to be 4/5 for the major muscle groups in the upper extremity. He has pain and discomfort in the lower portion of his back with pain that is radiating down into his right leg in the L5 distribution involving his foot. He complains of some numbness and tingling pain. Left hand tenderness. IMPRESSION: 1. Chronic low back pain, status post removal of a pain pump on 01/19/[address] Marbella Morfin. 2. Parkinson's disease. 3. Atrial fibrillation. 4. Myocardial infarct x 3. 5. Hypertension. 6. Skin cancer. 7. Restless leg syndrome. RECOMMENDATIONS: We have discussed the treatment options with the patient. He feels that his medications of hydrocodone, Soma, and alprazolam are helpful. He would like to continue with these medications. The patient is aware of the sedating properties of these three medications. He has been taking them chronically and has developed some tolerance without side effects. He notes therapeutic benefit from them with minimal side effects. At this juncture, we will continue with his medications. A script for his medications have been written. A script for hydrocodone 7.5 mg 1 p.o. q.i.d., Soma 350 mg t.i.d., and alprazolam 0.5 mg daily have been written. He will call us if he has any concerns. [address] [address] PAIN MANAGEMENT CONSULTATION Name: ELVIE ECHAVARRIA Room: [facility] EDNA Burden#: [id number] Admission: 03/17/18 Attend Phys: Gina Jimenes MD Discharge: Date of : 40 Report #: [id number] We would like to thank you for letting us to participate in his care. We hope he continues to improve. By: [id number]. Henri Jimenes MD /[employer]
== END ==
LOC: M.PC 10:20
DX: M54.5 Low back pain (principal); G89.29 Other chronic pain; I48.91 Unspecified atrial fibrillation; I10 Essential (primary) hypertension; G25.81 Restless legs syndrome; C44.90 Unspecified malignant neoplasm of skin, unspecified; I21.9 Acute myocardial infarction, unspecified; G20 Parkinson's disease

== ENCOUNTER → 2018-05-12 | Outpatient (CLI) | payer MEDICARE, OTHER ==
--- NOTE | ~2018-05-12 | PAINCON ---
[address] [address] PAIN MANAGEMENT CONSULTATION Name: ELVIE ECHAVARRIA Room: [facility] EDNA Burden#: [id number] Admission: 05/12/18 Attend Phys: Gina Jimenes MD Discharge: Date of : 40 Report #: [id number] THIS REPORT FOR: //name// CC: Juarez Jimenes DATE OF SERVICE: 05/12/2018 CHIEF COMPLAINT: "Here for medicine renewal, things are going okay. I am still having pain down in my right leg." FOLLOWUP HISTORY: The patient is a 77-year-old gentleman who has been followed in the pain clinic because of chronic low back pain. As you may recall, he has pain in the lower portion of his back in the L5-S1 dermatomal distribution. He has undergone decompressive laminectomies. His continues to have axial back pain and has pain is radiating down into his right leg from the buttocks down into the calf area. He rates the pain as a 6/10. He feels that his medications are helpful. He states that he is going to the [facility]. Paperwork for his treatment is being put in the place. He does have a history of aneurysm in the brain. This is about 5 mm. The patient has been given 50/50 chance of it rupturing with surgery. At this juncture, he has elected to continue on a conservative approach. He is using carbidopa/levodopa. He has Parkinson's symptomatology. He has been treated with complex medical management with opioid medications. He feels that the hydrocodone is helpful. Overall, things are going reasonably well. He did have a pain pump in place. This was removed. ALLERGIES: THE PATIENT IS ALLERGIC TO HEPARIN ANALOGUES, OXYCODONE, ZOLPIDEM, AND CEFEPIME. PAIN CLINIC ASSESSMENT/PQRS: 1. The patient has some chronic pain involving his left hip. He has had a right knee replacement. He has not been treated for rheumatoid arthritis. 2. Height 5 feet 8 inches, weight 199 pounds, BMI is 30. 3. Vital signs: Blood pressure 153/85, heart rate 82, respiratory rate is 17, temperature 98.0, and pain intensity 6/10. 4. Fall risk. The patient has not fallen in the last 3 months. 5. Blood thinner. The patient is not on a blood thinning medication. 6. Hypertension. The patient is being treated for hypertension. 7. Opioid greater than 6 weeks. The patient [facility]. 8. Risk assessment tool, low for opioid use. 9. Functional assessment tool. 10. Recreational drug use. The patient denies use of recreational drugs. 11. Tobacco: The patient denies use of tobacco smoke, stopped smoking in 1983. 12. Alcohol: The patient [place] [address] PAIN MANAGEMENT CONSULTATION Name: ELVIE ECHAVARRIA [facility] [id number] Admission: 05/12/18 Attend Phys: Gina Jimenes MD Discharge: Date of : 40 Report #: [id number] PHYSICAL EXAMINATION: GENERAL: The patient is a well-developed, well-nourished white male. Appears his stated age. He is alert and oriented x 3. His affect is appropriate. Speech is fluent. HEENT: Normocephalic, atraumatic. Extraocular eye muscles intact. Some characteristics of Parkinson's disease is noted in his movements. HEART: Regular rate. The patient with a history of atrial fibrillation. MUSCULOSKELETAL: Upper extremity judged to be 4/5 for the major muscle groups in the upper extremity. The patient complains of pain and discomfort that radiates down in the L5-S1 dermatomal distribution of his right leg. He continues to have some numbness and tingling in the affected area of his right foot. He has some tenderness in the left hand. He feels that there might be some rheumatological changes ongoing. IMPRESSION: 1. Chronic low back pain, status post removal of pain pump to 01/19/2018. 2. Parkinson's disease. 3. Atrial fibrillation. 4. Myocardial infarct. 5. Hypertension. 6. Skin cancer. 7. Restless legs syndrome. RECOMMENDATIONS: We discussed treatment options with the patient. Risks and benefits of his medications were discussed. The patient feels that his medications are helpful. He has taken the medication as prescribed. He has had no complications with it. He finds that the Xanax, Soma, hydrocodone are beneficial. He would like to continue with his medications. He has declined intervention regarding the cerebral aneurysm, it is 5 mm. We would like to thank you for letting us participate in his care. We hope he continues to improve. By: [id number] 13N. Henri Jimenes MD /nt
== END ==
LOC: M.PC 05:28
DX: M25.561 Pain in right knee (principal); G89.29 Other chronic pain; I10 Essential (primary) hypertension; I48.91 Unspecified atrial fibrillation; C44.90 Unspecified malignant neoplasm of skin, unspecified; G25.81 Restless legs syndrome; G20 Parkinson's disease; Z88.8 Allergy status to other drugs, medicaments and biological substances; Z96.651 Presence of right artificial knee joint; Z79.891 Long term (current) use of opiate analgesic; Z87.891 Personal history of nicotine dependence

== ENCOUNTER → 2018-07-07 | Outpatient (CLI) | payer OTHER ==
--- NOTE | 2018-07-09 01:32 | PAINCON ---
[address] [address] PAIN MANAGEMENT CONSULTATION Name: ELVIE ECHAVARRIA Room: [facility] EDNA Burden#: [id number] Admission: 07/07/18 Attend Phys: Gina Jimenes MD Discharge: Date of : 40 Report #: [id number] THIS REPORT FOR: //name// CC: Juarez Jimenes DATE OF SERVICE: 07/07/2018 CHIEF COMPLAINT: "Things are going reasonably well. Still having some swelling in my hand and also some low back pain." HISTORY: The patient is a 77-year-old gentleman who has been followed in the pain clinic. He has pain in his low back as well as right leg. Also, has history of headaches. He does have an aneurysm. He has spoken with a neurosurgeon. He has been told that his aneurysm might be somewhat problematic to clip. There is about a 50% chance that things would go reasonably well and 50% chance that things might not go as well as he would like. At this juncture, the patient feels that he would like to continue with his current state. He was told that the rehab after the aneurysm surgery might be 2 years. Overall, given the thought of possible complications and the amount of follow necessary to return to normal he feels he will just continue with his aneurysm situation. He rates his pain as a 5/10. He feels that his medications are helpful. He feels that he is at a "good point" at this juncture with his medication regimen. He feels that the hydrocodone, Soma, and Xanax were beneficial. Notes increased pain with walking, sitting, standing, bending, and lifting. ALLERGIES: THE PATIENT IS ALLERGIC TO HEPARIN ANALOGS, OXYCODONE, ZOLPIDEM, CEFEPIME. PAIN CLINIC ASSESSMENT AND PQRS: 1. The patient has some chronic pain involving his left hip. He has had a right hip replacement. He is not being treated for rheumatoid arthritis. 2. Height 5 feet 8 inches, weight 204 pounds, BMI is 28. 3. Vital signs: Blood pressure 150/82, heart rate 70, respiratory rate 16, room air saturation is 97%, temperature 97.9. 4. Pain intensity 5/10. 5. Fall history: The patient has not fallen in the last 3 months. 6. Blood thinner. The patient is not on a blood thinning medication. 7. Hypertension. The patient is being treated for hypertension. 8. Opioids greater than 6 weeks. The [facility]. 9. Risk assessment tool, low for opioid use. 10. Functional assessment tool. 11. Recreational drug use. The patient denies use of recreational drugs. 12. Tobacco: The patient denies use of tobacco, [place] in [address] [address] PAIN MANAGEMENT CONSULTATION Name: ELVIE ECHAVARRIA Room: [facility]#: [id number] Admission: 07/07/18 Attend Phys: Gina Jimenes MD Discharge: Date of : 40 Report #: [id number] 13. Alcohol: The patient denies use of alcoholic beverages. PHYSICAL EXAMINATION: GENERAL: The patient is a well-developed, well-nourished white male. Appears his stated age. He is alert and oriented x 3. His affect is appropriate. Speech is fluent. HEENT: Normocephalic, atraumatic. Extraocular eye muscles intact. Sclerae nonicteric. Mucous membranes are moist. The patient has some parkinsonian movements. HEART: Regular rate. The patient with history of atrial fibrillation. MUSCULOSKELETAL: Upper extremity muscle strength is judged to be 4/5 major muscle groups in the upper extremity. The patient has pain and discomfort that radiates down the L5-S1 dermatomal distribution. Continues to have some numbness and tingling in the affected areas of his right foot. Has some tenderness in his left hand. Feels that there might be some rheumatologic changes undergoing in this area. IMPRESSION: 1. Chronic low back pain, status post removal of pain pump on 01/19/2018. 2. Parkinson's disease. 3. Atrial fibrillation. 4. Myocardial infarct. 5. Hypertension. 6. Skin cancer. 7. Restless leg syndrome. 8. History of cerebral aneurysm. RECOMMENDATIONS: We discussed treatment options with the patient. At this point, he feels his medications are helpful. We will continue with the hydrocodone 7.5 mg 1 p.o. q.i.d. He still feels that the Soma 350 mg t.i.d. is helpful. Feels that Xanax 0.5 mg at bedtime continues to be beneficial. He has given some serious thought to the surgery for the aneurysm. He has been told by the surgeon that with surgery he would have about 2 years of follow up to recover from the surgery. He has been told that he probably has about 3 years of reasonable life expectancy at this juncture. Overall, he is happy with the way things are. He is going to continue with that plan. States that he had a CT scan at the [facility]. He has been told that results are ready. He is going to go to the [facility] today to review findings. Hopefully, things will continue to go well for him. The patient will call us if he has any concerns. We would like to thank you for letting us participate in his care. We hope he continues to improve. <ELECTRONICALLY SIGNED> By: Gina Jimenes MD 07/09/18 [id number]. Henri Jimenes MD /nt
== END ==
LOC: M.PC 04:52
DX: M54.5 Low back pain (principal); G89.29 Other chronic pain; I48.91 Unspecified atrial fibrillation; I10 Essential (primary) hypertension; G20 Parkinson's disease; G25.81 Restless legs syndrome; I21.9 Acute myocardial infarction, unspecified; C44.90 Unspecified malignant neoplasm of skin, unspecified; Z86.79 Personal history of other diseases of the circulatory system

== ENCOUNTER → 2018-09-01 | Outpatient (CLI) | payer MEDICARE, OTHER ==
--- NOTE | ~2018-09-01 | PAINCON ---
[address] [address] PAIN MANAGEMENT CONSULTATION Name: ELVIE ECHAVARRIA Room: [facility] EDNA Burden#: [id number] Admission: 09/01/18 Attend Phys: Gina Jimenes MD Discharge: Date of : 40 Report #: [id number] THIS REPORT FOR: //name// CC: Juarez Jimenes DATE OF SERVICE: 09/01/2018 CHIEF COMPLAINT: Here for medicine renewal. I am still following up with my doctor. He told me my aneurysm is 0.6. HISTORY: The patient is a 78-year-old gentleman who has been followed in the pain clinic. As you recall, he has some history of low back pain and right leg pain. He also has a history of headaches. He has been found to have an aneurysm. States that he has been followed by his neurosurgeon. aneurysm was 6 at this point. The possibility of clipping it is about 50% chance that things will go well. He at this point has elected to let Mother Nature take its course. He will continue with his medications for pain. He also will continue with a conservative approach. States that the hot weather has been somewhat difficult. He usually walks daily. He was only able to walk about 2 blocks. Temperature has been about 100 or higher. States that his medications are helpful. He is not interested in surgery. He feels that his balance is a little bit diminished secondary to his Parkinson's disease. Feels that the hydrocodone, Soma and Xanax are helpful. He would like to have his medications renewed. He feels he gets about 50% benefit from them. At this point, walking, sitting, standing and activities of daily living can exacerbate his discomfort. He refrain from heavy lifting and straining activities. ALLERGIES: THE PATIENT IS ALLERGIC TO HEPARIN ANALOGS, OXYCODONE, ZOLPIDEM, AND CEFEPIME. PAIN CLINIC ASSESSMENT/PQRS: 1. The patient has some chronic pain involving his left hip. Has had a right hip replacement. He is not being treated for rheumatoid arthritis. 2. Height 5 feet 11 inches, weight 203 pounds, BMI is 28. 3. VITAL SIGNS: Blood pressure 148/87, heart rate 64, respiratory rate 18, room air saturation is 96%, temperature 97.9. 4. Pain intensity 10. 5. Fall history: The patient has not fallen in the last 3 months. 6. Blood thinner. The patient is not on a blood thinning medication. 7. Hypertension. The patient is being treated for hypertension. 8. Opioids greater than 6 weeks. The [facility]. 9. Risk assessment tool, low for opioid use. 10. Functional assessment tool. 11. Recreational drug use. The patient denies [place] [address] PAIN MANAGEMENT CONSULTATION Name: ELVIE ECHAVARRIA Room: [facility]#: [id number] Admission: 09/01/18 Attend Phys: Gina Jimenes MD Discharge: Date of : 40 Report #: [id number] 12. Tobacco: The patient denies use of tobacco, stopped smoking in 1983. 13. Alcohol: The patient denies use of alcoholic beverages. PHYSICAL EXAMINATION: GENERAL: The patient is a well-developed, well-nourished white male. Appears his stated age. He is alert and oriented x3. His affect is appropriate. Has some movements, characteristic of Parkinson's. HEAD, EYES, EARS, NOSE, AND THROAT: Normocephalic, atraumatic. Extraocular eye muscles intact. Sclerae nonicteric. Mucous membranes are moist. The patient has bilateral hearing aids in place. HEART: Regular rate. The patient has history of atrial fibrillation. MUSCULOSKELETAL: Upper extremity muscle strength judged to be 4+/5 for the major muscle groups in the upper extremity. The patient has lower extremity pain in the L5 dermatomal distribution. Continues to have some numbness and tingling in the affected areas right foot. Has tenderness in the left hand. IMPRESSION: 1. Chronic low back pain status post removal of pain pump on 01/19/2018. 2. Parkinson's disease. 3. Atrial fibrillation. 4. Myocardial infarct. 5. Hypertension. 6. Skin cancer. 7. Restless legs syndrome. 8. History of cerebellar aneurysm. RECOMMENDATIONS: We discussed treatment options with the patient. At this juncture, he feels his medications are working reasonably well. He has had another MRI. The aneurysm appears to be remaining at 6 mm. He overall feels that things have gone reasonably well at this point. He is not interested in surgery. Feels his medications are helpful. She has tried to stay as active as he is hand. Feels that each day that he wakes up and things are going well as good. He feels that his hydrocodone is helpful. The Soma medication continues to be beneficial and Xanax continues to be beneficial. He is aware that the aneurysm could be problematic, but generally has come to hub associate that conservative treatment for him and his age is the best approach. A script for his medications of: Alprazolam 0.5 mg at bedtime, Soma 350 mg t.i.d., hydrocodone 7.5/325 four times daily have been written. The patient will follow up in 2 months. We would like to thank you for letting us to participate in his care. We hope he continues to improve. By: [id number]. Henri Jimenes MD /PMT
== END ==
LOC: M.PC 05:16
DX: Z76.0 Encounter for issue of repeat prescription (principal); I10 Essential (primary) hypertension; M54.5 Low back pain; G89.29 Other chronic pain; G20 Parkinson's disease; I48.91 Unspecified atrial fibrillation; I25.2 Old myocardial infarction; G25.81 Restless legs syndrome; Z85.828 Personal history of other malignant neoplasm of skin; Z88.8 Allergy status to other drugs, medicaments and biological substances; Z79.899 Other long term (current) drug therapy; Z79.891 Long term (current) use of opiate analgesic

== ENCOUNTER → 2018-10-27 | Outpatient (CLI) | payer MEDICARE, OTHER ==
[~2018-10-27] MED LIST changes: +Soma 350MG PO
--- NOTE | ~2018-10-27 | PAINCON ---
[address] [address] PAIN MANAGEMENT CONSULTATION Name: ELVIE ECHAVARRIA Room: [facility] EDNA Burden#: [id number] Admission: 10/27/18 Attend Phys: Gina Jimenes MD Discharge: Date of : 40 Report #: [id number] THIS REPORT FOR: //name// CC: Juarez Jimenes DATE OF SERVICE: 10/27/2018 CHIEF COMPLAINT: Here for medicine renewal. HISTORY: The patient is a 78-year-old gentleman who has been followed in the pain clinic because of chronic pain involving his low back. It has been problematic for a number of years. He has been seen in the pain clinic because of this chronic pain. He has a history of headaches. He has been found to have an aneurysm. He was told that it has increased by 0.5 since the last measurement. He at this point still feels he is going to take his chances at living a good life. He has been told there is 50/50 chance of surgery that he might have some complications. He has been told that it might be 2 years to recovery and may be additional 3 years of life. Family members have talked to him in regards to considering the procedure. He has talked to his about having the procedure. Overall, he feels that he is making the right decision. Rates his pain as 7/10. Continues to stay as active as possible. He overall is happy with his decision making. He lives life one day at a time. ALLERGIES: THE PATIENT IS ALLERGIC TO HEPARIN ANALOGUES, OXYCODONE, ZOLPIDEM, CEFEPIME. CURRENT MEDICATIONS: Zanaflex 0.5 mg at bedtime, carbidopa/levodopa 25/100 three times daily, Soma 350 mg t.i.d., Voltaren gel to the upper extremities 4 times daily, diltiazem 180 mg, hydrocodone 7.5/325 four times daily, Lasix 20 mg daily, potassium 10 mEq, PAIN CLINIC ASSESSMENT AND PQRS: 1. The patient has some chronic pain involving his left hip. He has pain in his right hip. The patient has pain in the low back area. He is not being treated for rheumatoid arthritis. 2. Height 5 feet 11 inches, weight 299 pounds, BMI is 27. 3. Vital signs: Blood pressure 160/93, heart rate 77, respiratory rate 16, room air saturation 93%, temperature 97.1. 4. Pain intensity 7/10. 5. Fall history: The patient has not fallen in the last 3 months. 6. Blood thinner. The patient is not on a blood thinning medication. 7. Hypertension. The patient is being treated for hypertension. 8. Opioids greater than 6 weeks. The [facility]. 9. Risk assessment tool, low [place] [address] PAIN MANAGEMENT CONSULTATION Name: ELVIE ECHAVARRIA Room: [facility]#: [id number] Admission: 10/27/18 Attend Phys: Gina Jimenes MD Discharge: Date of : 40 Report #: [id number] 10. Functional assessment tool. 11. Recreational drug use. The patient denies. 12. The patient denies use of tobacco, stopped smoking in 1983. 13. Alcohol. The patient denies use of alcoholic beverages. PHYSICAL EXAMINATION: GENERAL: The patient is a well-developed, well-nourished white male. Appears his stated age. He is alert and oriented x 3. His affect is appropriate. Speech is fluent. He is very affable. Has some characteristic parkinsonian movements. HEENT: Normocephalic, atraumatic. Extraocular eye muscles intact. Sclerae nonicteric. Mucous membranes are moist. NECK: Without adenopathy or JVD. HEART: Regular rate. History of atrial fibrillation. ABDOMEN: Nontender. EXTREMITIES: Upper extremity muscle strength 4+/5 for the major muscle groups in the upper extremity. The patient has some lower extremity pain in the L4-L5 dermatomal distribution. Continues to have numbness and tingling in the affected right foot. Has tenderness in his left hand. IMPRESSION: 1. Chronic low back pain, status post removal of pain pump in 01/19/2018. 2. Parkinson's disease. 3. Atrial fibrillation. 4. Myocardial infarct. 5. Hypertension. 6. Skin cancer. 7. Restless leg syndrome. 8. Cerebral aneurysm, which continues to increase in size. The patient has noted an increase in size by 0.5. RECOMMENDATIONS: We discussed treatment options with the patient. Overall, the patient is comfortable with his decision to not undergo treatment. He has been told that it would be fixed. He overall feels that things are going reasonably well and he would like to continue with a conservative approach. Continues to stay as active as possible. He feels that his medications of hydrocodone, Soma and Xanax are beneficial. He has returned today for renewal of these medications. We will continue the patient's medication regimen. He did state that the possibility of medical marijuana has been ____ of the possible benefit. He is not sure that he wants to do this at this juncture. He will continue with his medications. A script for hydrocodone 7.5/325 one p.o. q.i.d., have been written. The patient will also continue with Soma 325 [place] [address] PAIN MANAGEMENT CONSULTATION Name: ELVIE ECHAVARRIA Room: [facility] Jenise#: [id number] Admission: 10/27/18 Attend Phys: Gina Jimenes MD Discharge: Date of : 40 Report #: [id number] that the alprazolam 0.5 mg 1 tablet at bedtime are beneficial and he would like to continue their use. A script for these medications have all been renewed. By: [id number]. Henri Jimenes MD /nt
== END ==
LOC: M.PC 05:09
DX: M54.5 Low back pain (principal); G89.29 Other chronic pain; G20 Parkinson's disease; I48.91 Unspecified atrial fibrillation; I25.2 Old myocardial infarction; I10 Essential (primary) hypertension; C44.90 Unspecified malignant neoplasm of skin, unspecified; G25.81 Restless legs syndrome; I67.1 Cerebral aneurysm, nonruptured; Z88.8 Allergy status to other drugs, medicaments and biological substances; Z79.899 Other long term (current) drug therapy

== ENCOUNTER → 2018-12-22 | Outpatient (CLI) | payer MEDICARE, OTHER ==
--- NOTE | 2018-12-28 19:22 | PAINCON ---
[address] [address] PAIN MANAGEMENT CONSULTATION Name: ELVIE ECHAVARRIA [facility] [id number] Admission: 12/22/18 Attend Phys: Gina Jimenes MD Discharge: Date of : 40 Report #: [id number] THIS REPORT FOR: //name// CC: Juarez Simms DATE OF SERVICE: 12/22/2018 CHIEF COMPLAINT: Here for medications, things are going pretty well. HISTORY OF PRESENT ILLNESS: The patient is a 78-year-old gentleman who has been followed in the pain clinic. As you recall, he has chronic back problems. This pain has been problematic for years. He does have an aneurysm in his brain. States that at this juncture, he is told that he has a 50/50 chance of recovering from surgery. He has been told that it would probably take about 2 years to recover. This might add additional 3 years to his life. At this point, he has elected to continue on a conservative approach. The patient was recently in [facility]. He went on an [employer]. 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 They are given a tour of [facility]. States that he has seen some comrades who he had not seen in the last 56 years. He felt that at this juncture, it would be reasonable to go and see them now. He is a little bit tired and sore from the long trip. Overall, things are going reasonably well. He still has pain in his right buttocks, the pain radiates down into his foot. Does find that sometimes it keeps him from sleeping. States that he is going to see Dr. Ortiz in the future. He wants to know whether or not any intervention would be of help with this juncture. ALLERGIES: THE PATIENT IS ALLERGIC TO HEPARIN ANALOGUES, OXYCODONE, ZOLPIDEM, CEFEPIME. CURRENT MEDICATIONS: Zanaflex 0.5 mg at bedtime, carbidopa/levodopa 25/100 three times daily, Soma 350 mg t.i.d., Voltaren gel to the upper extremities 4 times daily, diltiazem 180 mg, hydrocodone 7.5 mg/325 four times daily, Lasix 20 mg daily, potassium 10 mEq. PAIN CLINIC ASSESSMENT AND PQRS: 1. The patient has some chronic pain involving his left hip. He has pain that radiates down in the lower portion of his back and down into his right buttocks into his leg and involving his foot. He is not being treated for rheumatoid arthritis. 2. Height 5 feet 11 inches, weight 204 pounds, BMI is 28. 3. Vitals; blood pressure 147/87, heart rate 71, respiratory rate 16, room air saturation 93%. 4. Pain intensity 7/10. 5. Fall history. The patient has not fallen in the last 3 [place] [address] PAIN MANAGEMENT CONSULTATION Name: ECHAVARRIAELVIE H Room: [facility]#: [id number] Admission: 12/22/18 Attend Phys: Gina Jimenes MD Discharge: Date of : 40 Report #: [id number] 6. Blood thinner. The patient is not on a blood thinning medication. 7. Hypertension. The patient is being treated for hypertension. 8. Opioids greater than 6 weeks. The patient receives [facility]. 9. Risk assessment tool, low for opioid use. 10. Functional assessment tool, reevaluated. 11. Recreational drug use. The patient denies. 12. Tobacco. The patient stopped smoking in 1983. 13. Alcohol. The patient denies use of alcoholic beverages. PHYSICAL EXAMINATION: GENERAL: The patient is a well-developed, well-nourished white male. Appears his stated age. He is alert and oriented x 3. His affect is appropriate. Speech is fluent. HEENT: Normocephalic, atraumatic. Extraocular eye muscles intact. The patient has some characteristics of Parkinson's in his movements. Sclerae nonicteric. Mucous membranes are moist. The patient has bilateral hearing aids in place. NECK: Without adenopathy or JVD. HEART: Regular rate. History of atrial fibrillation. ABDOMEN: Nontender. EXTREMITIES: Upper extremity muscle strength judged to be 4+/5 for the major muscle groups in the upper extremity. The patient has pain and discomfort in lower portion of his back in the L4-L5 dermatomal distribution with pain radiating down his right back, right leg and down into the leg involving his foot. Has some tenderness in his left hand. IMPRESSION: 1. Chronic low back pain, status post removal of pain pump on 01/19/2018. 2. Parkinson disease. 3. Atrial fibrillation history. 4. Myocardial infarct. 5. Hypertension. 6. Skin cancer. 7. Restless legs syndrome. 8. Cerebral aneurysm, which continues to increase in size. The patient states that it was 0.5 cm. RECOMMENDATIONS: We discussed treatment with the patient. At this juncture, he feels that his medications are working reasonably well. He finds that they helped with his pain. Still has pain, which is still problematic. He is considering seeing Dr. Ortiz in regard to possible options in the future. He is not sure that a surgical option is available, but would like to check with him anyway. He feels that his hydrocodone medication is helpful. Feels that the Soma medication is helpful with muscle spasms. Feels that the Xanax is helpful with the anxiety and restless legs problems. He would like to have his medications renewed. He is happy that he went to [facility]. 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 Overall, thinks this was a good visit. We have renewed his medications. He is aware that opioid medications can be problematic in certain people. He is taking his medication as prescribed. Keeps his medications in a guarded area. He is aware that tolerance can develop with long-term use of opioid medications. A script for hydrocodone 7.5 mg 1 p.o. t.i.d. has been written for the next 2 months. He will also continue with the Soma 350 mg 1 p.o. t.i.d. The patient will continue with Xanax for anxiety p.r.n. <ELECTRONICALLY SIGNED> By: Gina Jimenes MD 12/28/18 [id number]. Henri Jimenes MD /miki
== END ==
LOC: M.PC 04:10
DX: M54.5 Low back pain (principal); I48.91 Unspecified atrial fibrillation; G20 Parkinson's disease; I25.2 Old myocardial infarction; G25.81 Restless legs syndrome

== ENCOUNTER → 2019-02-16 | Outpatient (CLI) | payer MEDICARE, OTHER ==
--- NOTE | ~2019-02-16 | PAINCON ---
[address] [address] PAIN MANAGEMENT CONSULTATION Name: ELVIE ECHAVARRIA Room: [facility] EDNA Burden#: [id number] Admission: 02/16/19 Attend Phys: Gina Jimenes MD Discharge: Date of : 40 Report #: [id number] THIS REPORT FOR: //name// CC: Gina Love MD DATE OF SERVICE: 02/16/2019 CHIEF COMPLAINT: Still having some pain in the low back area and here for medication renewal. "My aneurysm has grown a little bit to about 6.5." HISTORY: The patient is a 78-year-old gentleman who has been followed in the pain clinic because of chronic pain. As you recall, he has some degenerative joint disease in his back as well as his left hip and suffers from chronic pain. He has returned today for renewal of his medication. He has an aneurysm in his brain. It was about 6 cm. It has increased at the last measurement. It is about 6.5. He was told that surgery might be helpful, but there was a 50:50 chance that he would be able to recover. He was told that there would be a considerable amount of time for his recovery after the surgery. He has elected to medically manage it. He returns today indicating that his medications are helpful. He would like to continue with their use. He is having some problems with his memory. Has found some problems with his balance. Overall, things have gone reasonably well since we saw him the last time. He rates his pain as a 7/10. Feels his medications provide him about 50% improvement in his pain. Continues to have some problems with Parkinson disease. He feels that it is progressing. He has returned today for renewal of his medications. ALLERGIES: ALLERGIC TO HEPARIN ANALOGUES, OXYCODONE, ZOLPIDEM, CEFEPIME. CURRENT MEDICATIONS: Zanaflex 0.5 mg at bedtime, carbidopa/levodopa 25/100 three times daily, Soma 350 mg t.i.d., Voltaren gel upper extremities 4 times daily, diltiazem 180 mg, hydrocodone 7.5 mg t.i.d., Lasix 20 mg daily, potassium 10 mEq. PAIN CLINIC ASSESSMENT AND PQRS: 1. The patient has some pain involving his hip on the left side. Has pain radiates down in the lower portion of his back and into his right buttocks into his leg and into his foot. He is not being treated for rheumatoid arthritis. 2. Height 5 feet 11 inches, weight 200 pounds, BMI is 28.0. 3. Vital Signs: Blood pressure 142/69, heart rate 70, respiratory rate 18, room air saturation is 94%, temperature is 97.7, pain score 7/10. 4. Fall history: The patient has not fallen in the last 3 months. 5. Blood thinner. The patient is not on a blood thinning medication. 6. Hypertension. The patient is being treated for hypertension. 7. Opioids greater than 6 weeks. [place] [address] PAIN MANAGEMENT CONSULTATION Name: ELVIE ECHAVARRIA Room: [facility]#: [id number] Admission: 02/16/19 Attend Phys: Gina Jimenes MD Discharge: Date of : 40 Report #: [id number]. 8. Risk assessment tool, low for opioid use. 9. Functional assessment tool. 10. Recreational drug use: The patient denies. 11. Tobacco: The patient stopped smoking in 1983. 12. Alcohol. The patient denies use of alcoholic beverages. PHYSICAL EXAMINATION: GENERAL: The patient is a well-developed, well-nourished white male. Appears his stated age. He is alert and oriented x 3. His affect is appropriate. Some slowness associated with Parkinson disease. Speech is fluent. HEENT: Normocephalic, atraumatic. Extraocular eye muscles intact. Sclerae nonicteric. He has bilateral hearing aids in place. NECK: Without adenopathy or JVD. HEART: Regular rate. History of atrial fibrillation. ABDOMEN: Nontender. EXTREMITIES: Upper extremity muscle strength judged to be 4+/5 for the major muscle groups in the upper extremity. The patient has pain and discomfort in the lower portion of his back at the L4-L5 dermatomal distribution and has pain that radiates down the back of his leg. IMPRESSION: 1. Chronic low back pain, status post removal of pain pump on 01/19/2018. 2. Parkinson disease. 3. Atrial fibrillation. 4. Myocardial infarct. 5. Hypertension. 6. Skin cancer. 7. Restless leg syndrome. 8. Cerebral aneurysm, which increase in size. The patient states that it was 0.5 cm. It has increased to 6.5 cm. RECOMMENDATIONS: We discussed treatment options with the patient. At this juncture, we will continue with his medications. He feels that the medications are helpful. He would like to continue with their use. He does not have any problems or side effects from their use. He tries to stay as busy as possible. It is still comfortable with his decision to take the medical management course of treatment. A script for his medications has been rewritten. He will continue with hydrocodone 7.5 mg 1 p.o. q.i.d. He will also continue with alprazolam 0.5 mg 1 p.o. daily. The patient finds Soma helpful as well. A script for 350 mg 1 p.o. t.i.d. has been written. We would like to thank you for letting us participate in his care. Hopefully, things continue to go well. He will call us if [place] [address] PAIN MANAGEMENT CONSULTATION Name: JERICHOELVIE H Room: [facility]#: [id number] Admission: 02/16/19 Attend Phys: Gina Jimenes MD Discharge: Date of : 40 Report #: [id number] We would like to thank you for letting us participate in his care. By: [id number] Jimenes MD /nt
== END ==
LOC: M.PC 08:17
DX: M54.5 Low back pain (principal); G89.29 Other chronic pain; G20 Parkinson's disease; I48.91 Unspecified atrial fibrillation; I25.2 Old myocardial infarction; I10 Essential (primary) hypertension; G25.81 Restless legs syndrome; Z85.828 Personal history of other malignant neoplasm of skin; Z79.891 Long term (current) use of opiate analgesic; Z88.8 Allergy status to other drugs, medicaments and biological substances

== ENCOUNTER → 2019-04-13 | Outpatient (CLI) | payer MEDICARE, OTHER ==
--- NOTE | 2019-04-27 09:57 | PAINCON ---
[address] [address] PAIN MANAGEMENT CONSULTATION Name: ELVIE ECHAVARRIA Room: [facility] EDNA NortonHakeem.#: [id number] Admission: 04/13/19 Attend Phys: Gina Jimenes MD Discharge: Date of : 40 Report #: [id number] THIS REPORT FOR: //name// cc: Juarez Mike Brad DO ~ THIS REPORT FOR: //name// CC: Juarez BILLINGS MD DATE OF SERVICE: 04/13/2019 CHIEF COMPLAINT: Here for medication renewal. "They are still watching the aneurysm in my brain." HISTORY: The patient is a 78-year-old gentleman who has been followed in the pain clinic. As you may recall, he has chronic pain in his left hip. He also has an aneurysm in his brain. It is about 6 cm per his report. It is increased slightly to 6.5 cm. He has elected to continue on a conservative course. He was told that there is a 50/50 chance that surgery would leave him with significant deficits. At this juncture, he has elected to continue with his life for as long as he can without surgery. He feels that the medications provide him about 50% improvement in his pain. He recently went to the Emergency Room because of an episode of hypertension. His blood pressure is 197. He was having some headaches. It was thought that he was concerned about the aneurysm. He will have the aneurysm remeasured in about 6 months. ALLERGIES: THE PATIENT IS ALLERGIC TO HEPARIN ANALOGUES, OXYCODONE, ZOLPIDEM AND CEFEPIME. CURRENT MEDICATIONS: Zanaflex 0.5 mg at bedtime, carbidopa/levodopa 25/100 three times daily, Soma 350 mg t.i.d., Voltaren gel 4 times daily, diltiazem 180 mg, hydrocodone 7.5 mg t.i.d., Lasix 20 mg daily and potassium 10 mEq. PAIN CLINIC ASSESSMENT AND PQRS: 1. The patient has pain involving his hip on left side. His pain radiates down the lower portion of his back and into his right buttocks involving his leg and into his foot. He is not being treated for rheumatoid arthritis. 2. Height 5 feet 11 inch, weight 199 pounds, BMI is 28.1. 3. Vital signs: Blood pressure 148/86, heart rate 75, respiratory rate 16, room air saturation 93%, and temperature is 97.9. 4. Pain intensity 6/10. 5. Fall history: The patient has not fallen in the last 3 months. 6. Blood thinner. The patient is not on a blood-thinning medication. 7. Hypertension. The patient is [place] [address] PAIN MANAGEMENT CONSULTATION Name: ELVIE ECHAVARRIA Room: [facility]#: [id number] Admission: 04/13/19 Attend Phys: Gina Jimenes MD Discharge: Date of : 40 Report #: [id number] 8. Opioids greater than 6 weeks. The patient received medication from one source, the pain clinic. 9. Risk assessment tool, low for opioid use. 10. Functional assessment tool reviewed. 11. Recreational drug use: The patient denies. 12. Tobacco: The patient stopped smoking in 1983. 13. Alcohol. The patient denies use of alcoholic beverages. PHYSICAL EXAMINATION: GENERAL: The patient is a well-developed, well-nourished white male. Appears his stated age. He is alert and oriented x 3. His affect is appropriate. Speech is fluent, somewhat slow movement secondary to Parkinson's disease. Speech is fluent. HEENT: Normocephalic, atraumatic. Extraocular eye muscles intact. Sclerae nonicteric. Mucous membranes are moist. The patient has bilateral hearing aids in place. NECK: Without adenopathy or JVD. HEART: Regular rate. History of atrial fibrillation. ABDOMEN: Nontender. LUNGS: Generally clear. EXTREMITIES: Upper extremity muscle strength judged to be 4+/5 for the major muscle groups in the upper extremity. The patient has pain and discomfort that radiates down the lower portion of his back in the L4-L5 dermatomal distribution. IMPRESSION: 1. Chronic low back pain, status post removal of pain pump on 01/19/2018. 2. Parkinson's disease. 3. Atrial fibrillation. 4. Myocardial infarct. 5. Hypertension. 6. Skin cancer. 7. Restless leg syndrome. 8. Cerebral aneurysm, which continues to increase in size approximately 6.5 at this juncture. RECOMMENDATIONS: We discussed treatment options with the patient. At this juncture, we will continue with his medications. He feels these medications continue to be helpful. He continues to live life to the fullest. He feels that his medications are helpful. He continues to monitor his 's history. She does have stage 3 renal failure. We would like to continue with his medications. He is not having any complications. He is able to think clearly. They enable him to continue to be as fruitful as possible and were not causing any confusion. A script for his medications have been rewritten. The patient will continue with Soma 350 mg 1 [facility] [address] [place] [address] PAIN MANAGEMENT CONSULTATION Name: ELVIE ECHAVARRIA Room: [facility]#: [id number] Admission: 04/13/19 Attend Phys: Gina Jimenes MD Discharge: Date of : 40 Report #: [id number] p.o. t.i.d. He will also continue with Zanaflex 0.5 mg 1 p.o. daily. A script for hydrocodone 7.5 mg 1 p.o. q.i.d. has been written. The patient has been provided with the opioid medications for the next month. He will call us if he has any concerns. We would like to thank you for letting us participate in his care. We hope he continues to improve. <ELECTRONICALLY SIGNED> By: Gina Jimenes MD 04/27/19 [id number]. Henri Jimenes MD /nt
== END ==
LOC: M.PC 04:17
PROVIDERS: Anesthesiology Pain Medicine
DX: M25.552 Pain in left hip (principal); M54.5 Low back pain; G89.29 Other chronic pain; I10 Essential (primary) hypertension; G25.81 Restless legs syndrome; C44.90 Unspecified malignant neoplasm of skin, unspecified; I48.91 Unspecified atrial fibrillation; G20 Parkinson's disease; I25.2 Old myocardial infarction; I67.1 Cerebral aneurysm, nonruptured; Z79.891 Long term (current) use of opiate analgesic; Z79.899 Other long term (current) drug therapy; Z88.5 Allergy status to narcotic agent; Z88.8 Allergy status to other drugs, medicaments and biological substances

== ENCOUNTER → 2019-06-10 | Outpatient (CLI) | payer MEDICARE, OTHER ==
--- NOTE | 2019-06-11 08:13 | PAINCON ---
[address] [address] PAIN MANAGEMENT CONSULTATION Name: ELVIE ECHAVARRIA [facility]: [facility]LY[facility] Burden#: [id number] Admission: 06/10/19 Attend Phys: Gina Jimenes MD Discharge: Date of : 40 Report #: [id number] THIS REPORT FOR: //name// cc: Juarez Mike Brad DO ~ THIS REPORT FOR: //name// CC: Juarez Jimenes DATE OF SERVICE: 06/10/2019 CHIEF COMPLAINT: "My pain is getting worse in my leg. I am thinking about having surgery in the future." HISTORY: The patient is a 78-year-old gentleman who has been followed in the pain clinic because of chronic pain. As you may recall, he has chronic pain with pain in the lower portion of his back. He continues to have pain that is radiating down into his leg. Left side is most problematic. He has spoken with his neurosurgeon. At this juncture, because of the coronavirus, no elective surgeries are being done at this juncture. He feels that the pain still was quite problematic. He rates it as a 6/10. He feels that his medications of hydrocodone are helpful. He has an aneurysm. He will be following up with his surgeon in that regarding the near future. He feels that he may need more imaging. He rates his pain as about 30% improved with his current medications. He notes that walking, sitting, standing can be problematic. He was using Xanax. He was only given 0.25 mg of Xanax from his last pharmacy visit. He states that they did not have the 0.5 mg dose and has been sleeping less comfortably with the lower dose. ALLERGIES: THE PATIENT IS ALLERGIC TO HEPARIN ANALOGUES, OXYCODONE, ZOLPIDEM, AND CEFEPIME. CURRENT MEDICATIONS: Zanaflex 0.5 mg at bedtime, carbidopa/levodopa 25/100 three times daily, Soma 350 mg t.i.d., Voltaren gel 4 times daily, diltiazem 180 mg, hydrocodone 7.5 mg t.i.d., Lasix 20 mg daily, and potassium 10 mEq. PAIN CLINIC ASSESSMENT AND PQRS: 1. The patient has pain and discomfort involving his low back area. He has had it on the left side. Now it is more problematic on the right. 2. The patient is not being treated for rheumatoid arthritis. 3. Height 5 feet 11 inches, weight 202 pounds, BMI is 28.5. 4. Vital signs: Blood pressure 147/51. 5. Heart rate 69, respiratory rate 16, room air saturation 95%, temperature 97.7. 6. Pain intensity 6/10. [place] [address] PAIN MANAGEMENT CONSULTATION Name: ELVIE ECHAVARRIA [facility] [id number] Admission: 06/10/19 Attend Phys: Gina Jimenes MD Discharge: Date of : 40 Report #: [id number] 7. Fall history: The patient has not fallen in the last 3 months. 8. Blood thinner. The patient is not on a blood thinning medication. 9. Hypertension. The patient is being treated for hypertension. 10. Opioids greater than 6 weeks. The patient receives medication from the pain clinic. 11. Risk assessment tool, low for opioid use. 12. Functional assessment tool reviewed. 13. Recreational drug use. The patient denies. 14. Tobacco: The patient denies. 15. Alcohol. The patient denies use of alcohol. PHYSICAL EXAMINATION: GENERAL: The patient is a well-developed, well-nourished white male. He appears his stated age. He is alert and oriented x 3. His affect is appropriate. Speech is fluent. The patient is loquacious. HEENT: Normocephalic, atraumatic. Extraocular eye muscles intact. Sclerae nonicteric. Mucous membranes are moist. The patient has bilateral hearing aids in place. He is wearing glasses. NECK: Without adenopathy or JVD. HEART: Regular rate. History of atrial fibrillation. ABDOMEN: Nontender. LUNGS: Generally clear. EXTREMITIES: Upper extremity muscle strength judged to be 4+/5 for the major muscle groups in the upper extremity. The patient has pain and discomfort in lower portion of his back with pain that is radiating down the L4-L5 dermatomal distribution on the right today. IMPRESSION: 1. Chronic low back pain, status post removal of pain pump on 01/19/2018. 2. Parkinson's disease. 3. Atrial fibrillation. 4. Myocardial infarct. 5. Hypertension. 6. Skin cancer. 7. Restless legs syndrome. 8. Cerebral aneurysm, which continues to be measured on a 6-month basis approximately 6.5 at the last measurement. RECOMMENDATIONS: We discussed treatment options with the patient. At this juncture, we will continue with his medication. He states that he did not receive the Xanax 0.5 mg tablets. He was given to 0.25 mg tablets. He also went to a second pharmacy. They too gave him the 0.25 mg tablets. They did not tell why. He would like to continue the 0.5 mg because he is able to sleep better. He will call us if he does not get them at the filling of his medication. We will then have the patient take a 0.25 mg tablet b.i.d. The patient will also contact his surgeon. The coronavirus clamp down is decrease [facility] [address] [place] [address] PAIN MANAGEMENT CONSULTATION Name: ELVIE ECHAVARRIA Room: [facility].#: [id number] Admission: 06/10/19 Attend Phys: Gina Jimenes MD Discharge: Date of : 40 Report #: [id number] in 06/2019. Hopefully, he would be a candidate for surgery if he needed or chose in 06/2019. He is scheduled to see his surgeon regarding imaging of the cerebral aneurysm. A script for his medications has been provided. The patient will continue with hydrocodone 7.5 mg 1 p.o. 4 times daily. He will continue with Xanax 0.5 mg 1 p.o. daily at bedtime. We would like to thank you for letting us participate in his care. We hope he continues to improve. <ELECTRONICALLY SIGNED> By: Gina Jimenes MD 06/11/19 0813 [id number]. Henri Jimenes MD /nt
== END ==
LOC: M.PC 06-08 08:10
DX: M54.5 Low back pain (principal); G20 Parkinson's disease; I48.91 Unspecified atrial fibrillation; I25.2 Old myocardial infarction; I10 Essential (primary) hypertension; F11.20 Opioid dependence, uncomplicated; G25.81 Restless legs syndrome; C44.90 Unspecified malignant neoplasm of skin, unspecified; Z88.1 Allergy status to other antibiotic agents; Z88.2 Allergy status to sulfonamides; Z88.8 Allergy status to other drugs, medicaments and biological substances; Z79.899 Other long term (current) drug therapy

== ENCOUNTER → 2019-08-05 | Outpatient (CLI) | payer MEDICARE, OTHER ==
--- NOTE | 2019-08-19 15:59 | PAINCON ---
[address] [address] PAIN MANAGEMENT CONSULTATION Name: ELVIE ECHAVARRIA [facility] Burden#: [id number] Admission: 08/05/19 Attend Phys: Gina Jimenes MD Discharge: Date of : 40 Report #: [id number] THIS REPORT FOR: //name// cc: Juarez Mike Brad DO ~ THIS REPORT FOR: //name// CC: Juarez Simms DATE OF SERVICE: 08/05/2019 CHIEF COMPLAINT: Here for medication renewal and I am having some back pain. HISTORY: The patient is a 78-year-old gentleman who has been followed in the Pain Clinic because of chronic low back pain. He is experiencing pain in the lower portion of his back. Use of hydrocodone is not as helpful as it had been in the past. He has noted some increased dizziness. He is not sleeping well. He rates his pain as an 8/10. He has used Soma to help control muscle spasms. Notes that walking, sitting, and standing can be problematic. He has spoken to a neurosurgeon. At this juncture, because of the coronavirus, no elective surgeries are being done. He has an aneurysm. He will follow up with his surgeon in the near future. He feels that his pain is about 30% improved with his current medical regimen. He has returned today for renewal of his medications. ALLERGIES: THE PATIENT IS ALLERGIC TO HEPARIN ANALOGUES, OXYCODONE, ZOLPIDEM AND CEFEPIME. CURRENT MEDICATIONS: Zanaflex 0.5 mg at bedtime, carbidopa/levodopa 25/100 three times daily, Soma 350 mg t.i.d., Voltaren gel 4 times daily, diltiazem 180 mg, hydrocodone 7.5 mg t.i.d., Lasix 20 mg, and potassium 10 mEq. PAIN CLINIC ASSESSMENT/PQRS: 1. The patient has pain and discomfort involving his low back. He has some on the left side. Both the left and right sides are problematic at this juncture. The patient is not being treated for rheumatoid arthritis. 2. Height 5 feet 11 inches, weight 204 pounds, and BMI 28.5. 3. Vital signs: Blood pressure 130/75, heart rate 72, respiratory rate 13, room air saturation 97%, and temperature 97.9. 4. Pain intensity, 8/10. 5. Fall history: The patient has not fallen since we saw him last. 6. Blood thinner. The patient is not on a blood thinning medication. 7. Hypertension. The patient is being treated for hypertension. 8. Opioids greater than 6 weeks. The patient [place] [address] PAIN MANAGEMENT CONSULTATION Name: ECHAVARRIAELVIE H Room: [facility]#: [id number] Admission: 08/05/19 Attend Phys: Gina Jimenes MD Discharge: Date of : 40 Report #: [id number] Clinic. 9. Risk assessment tool, low for opioid use. 10. Functional assessment tool reviewed. 11. Recreational drug use. The patient denies. 12. Tobacco: The patient denies. 13. Alcohol. The patient denies use of alcoholic beverages. PHYSICAL EXAMINATION: GENERAL: The patient is a well-developed, well-nourished white male. He appears his stated age. He is alert and oriented x 3. His affect is appropriate. Speech is fluent. HEENT: Normocephalic, atraumatic. The patient is loquacious. The patient is wearing a mask. He has bilateral hearing aids in place. He is wearing glasses. NECK: Without adenopathy or JVD. HEART: Regular rate. History of atrial fibrillation. ABDOMEN: Nontender. LUNGS: Generally clear. EXTREMITIES: Upper extremity muscle strength is judged to be 4+/5 for the major muscle groups in the upper extremity. The patient has pain and discomfort in the lower portion of his back and has pain that radiates down the L4-L5 dermatomal distribution on the right. IMPRESSION: 1. Chronic low back pain, status post removal of pain pump on 01/19/2018. 2. Parkinson's disease. 3. Atrial fibrillation. 4. Myocardial infarct. 5. Hypertension. 6. Skin cancer. 7. Restless legs syndrome. 8. Cerebral aneurysm, which continues to increase in size over the last 6 months. RECOMMENDATIONS: We discussed treatment options with the patient. At this juncture, we will continue with his medications. He feels that the medications are helpful. He feels that his Xanax medication is beneficial. A script for this medication has been renewed. The patient will also continue with hydrocodone 7.5 mg 1 p.o. q.i.d. He will continue with Soma 350 mg 1 p.o. t.i.d. and Xanax 0.5 mg. Appropriate medications have been dispersed. He will call us if he has any concerns. [facility] [address] [place] [address] PAIN MANAGEMENT CONSULTATION Name: ELVIE ECHAVARRIA Room: [facility] Bryan.#: [id number] Admission: 08/05/19 Attend Phys: Gina Jimenes MD Discharge: Date of : 40 Report #: [id number] We would like to thank you for letting us participate in his care. We hope he continues to improve. <ELECTRONICALLY SIGNED> By: Gina Jimenes MD 08/19/19 1559 [id number] Jimenes MD /nt
== END ==
LOC: M.PC 04:44
PROVIDERS: ATTEND Anesthesiology Pain Medicine
DX: M54.5 Low back pain (principal); G20 Parkinson's disease; I48.91 Unspecified atrial fibrillation; I25.9 Chronic ischemic heart disease, unspecified; I10 Essential (primary) hypertension; C44.90 Unspecified malignant neoplasm of skin, unspecified; G25.81 Restless legs syndrome; I67.1 Cerebral aneurysm, nonruptured; F11.20 Opioid dependence, uncomplicated; Z79.899 Other long term (current) drug therapy

== ENCOUNTER → 2019-09-30 | Outpatient (CLI) | payer MEDICARE, OTHER ==
[~2019-09-30] MED LIST changes: +SOMA350 MG PO
--- NOTE | 2019-10-12 15:37 | PAINCON ---
[address] [address] PAIN MANAGEMENT CONSULTATION Name: ELVIE ECHAVARRIA Room: [facility] EDNA NortonAundreaKevin.#: [id number] Admission: 09/30/19 Attend Phys: Gina Jimenes MD Discharge: Date of : 40 Report #: [id number] THIS REPORT FOR: //name// cc: REYNA MCMILLAN APRN Physician not on staff ~ THIS REPORT FOR: //name// CC: DO REYNA Shirley Physician staff DATE OF SERVICE: 09/30/2019 PRIMARY CARE PHYSICIAN: Juarez Mike DO CHIEF COMPLAINT: "Low back pain and I am thinking about having surgery." HISTORY: The patient is a 79-year-old gentleman who has been followed in the pain clinic because of chronic pain in his low back. He has been using opioid medications to help control the pain and discomfort. He has found that the low back pain has become more and more problematic. It involves his right leg and then radiates down into his foot. This has been problematic since 2000. He has reached a point where he feels that surgery is a viable option. He is scheduled to have surgery on 11/12/2019 at [facility]. He notes that his pain is aching and throbbing. He fell last 3 months in rain and on the concrete. He rates his pain today as a 7/10. Feels that the medications continue to be helpful and has returned for renewal. Notes that walking, standing, sitting, cold temperatures exacerbate his discomfort. He does have a history of a cerebral aneurysm. ALLERGIES: THE PATIENT IS ALLERGIC TO HEPARIN AND ITS ANALOGUES, OXYCODONE, ZOLPIDEM AND CEFEPIME. CURRENT MEDICATIONS: Zanaflex 0.5 mg at bedtime, carbidopa/levodopa 25/100, t.i.d., Soma 350 mg t.i.d., Voltaren gel 4 times daily, diltiazem 180 mg, hydrocodone 7.5 mg t.i.d., Lasix 20 mg, potassium 10 mEq. PAIN CLINIC ASSESSMENT AND PQRS: 1. The patient has pain and discomfort involving his low back. He has some pain on the left side. Both the left and right sides are problematic at this juncture. 2. The patient is not being treated for rheumatoid arthritis. 3. Height 5 feet 11 inches, weight 206 pounds, BMI is 28. 4. Vital signs: Blood pressure 139/90, heart rate 86, respiratory rate 16, room air saturation 96%, temperature 98.1. [place] [address] PAIN MANAGEMENT CONSULTATION Name: ELVIE ECHAVARRIA Room: [facility]#: [id number] Admission: 09/30/19 Attend Phys: Gina Jimenes MD Discharge: Date of : 40 Report #: [id number] 5. Pain intensity 08/19. 6. Fall history: The patient has fallen. 7. Blood thinner. The patient is not on a blood thinning medication. 8. Hypertension. The patient is being treated for hypertension. 9. Opioids greater than 6 weeks. The patient receives medication from the pain clinic. 10. Risk assessment tool, low for opioid use. 11. Functional assessment tool. 12. Recreational drug use. The patient denies. 13. Tobacco: The patient denies. 14. Alcohol. The patient denies use of alcoholic beverages. PHYSICAL EXAMINATION: GENERAL: The patient is a well-developed, well-nourished white male. Appears his stated age. He is alert and oriented x 3. His affect is appropriate. Speech is fluent. HEENT: Normocephalic, atraumatic. Extraocular eye muscles intact. The patient is loquacious. He is wearing a mask. Has bilateral hearing aids in place. He is wearing glasses. NECK: Without adenopathy or JVD. HEART: Regular rate. History of atrial fibrillation. ABDOMEN: Nontender. LUNGS: Generally clear. EXTREMITIES: Upper extremity muscle strength judged to be 4+/5 for the major muscle groups in the upper extremity. The patient has pain and discomfort in his lower portion of his back with pain that radiates in the L4-L5 dermatomal distribution on the right. IMPRESSION: 1. Chronic low back pain, status post removal of pain pump on 01/19/2018. 2. Parkinson's disease. 3. Atrial fibrillation. 4. Myofascial fascial or myocardial infarct. 5. Hypertension. 6. Skin cancer. 7. Restless legs syndrome. 8. Cerebral aneurysm, which continues to increase in size over the last 6 months. RECOMMENDATIONS: We discussed treatment options with the patient. At this juncture, we will continue with his hydrocodone medication. A script for his medications has been written. He finds that these medications continue to be beneficial. He is scheduled to have surgery in November on the low back area to help quell the pain and discomfort. Hopefully, he will do well with the surgery. A script for his medications has been rewritten. He will continue with alprazolam 0.5 mg at bedtime. He will also continue with hydrocodone [address] [place] [address] PAIN MANAGEMENT CONSULTATION Name: ELVIE ECHAVARRIA Room: [facility]#: [id number] Admission: 09/30/19 Attend Phys: Gina Jimenes MD Discharge: Date of : 40 Report #: [id number] one p.o. q.i.d. The patient will continue with Soma 300 mg. He will call us if he has any concerns postop. We would like to thank you for letting us participate in his care. We hope he continues to improve. <ELECTRONICALLY SIGNED> By: Gina Jimenes MD 10/12/19 [id number]. Henri Jimenes MD /PMT
== END ==
LOC: M.PC 08:27
PROVIDERS: ATTEND Anesthesiology Pain Medicine
DX: M54.5 Low back pain (principal); G89.29 Other chronic pain; G20 Parkinson's disease; I48.91 Unspecified atrial fibrillation; M79.10 Myalgia, unspecified site; I10 Essential (primary) hypertension; C44.90 Unspecified malignant neoplasm of skin, unspecified; G25.81 Restless legs syndrome; I67.1 Cerebral aneurysm, nonruptured; Z88.8 Allergy status to other drugs, medicaments and biological substances; Z79.899 Other long term (current) drug therapy

== ENCOUNTER → 2019-11-23 | Outpatient (CLI) | payer MEDICARE, OTHER ==
--- NOTE | ~2019-11-23 | PAINCON ---
[address] [address] PAIN MANAGEMENT CONSULTATION Name: ELVIE ECHAVARRIA [facility] [id number] Admission: 11/23/19 Attend Phys: Gina Jimenes MD Discharge: Date of : 40 Report #: [id number] THIS REPORT FOR: //name// cc: Physician not on staff Physician not on staff ~ THIS REPORT FOR: //name// CC: Dr. Mariah Jimenes Physician staff DATE OF SERVICE: 11/23/2019 CHIEF COMPLAINT: Here for medication renewal. "I had my back surgery and the pain is better." HISTORY: The patient is a 79-year-old gentleman who has been followed in the pain clinic for some time. He has had back pain. In the past, he had back surgery. Over the years, he noted worsening of his pain. He recently had surgery because of pain in the lower portion of his back. He has pain that radiated down to his right leg, which was quite problematic. He is still having some discomfort, but not near the level that he had prior to the surgery. Overall, he feels that it was a success. He rates his pain today as a 4-5. Feels his medications continue to be helpful. He had pretty much an uneventful hospitalization. He is scheduled to see his surgeon in a couple of days. He notes that the pain is worse when he is walking, sitting, standing and with certain activities. Use of his medications and heat are helpful. ALLERGIES: THE PATIENT IS ALLERGIC TO HEPARIN AND ITS ANALOGUES, OXYCODONE, ZOLPIDEM AND CEFEPIME. CURRENT MEDICATIONS: Zanaflex 0.5 mg at bedtime, carbidopa/levodopa 25/100 t.i.d., Soma 350 mg t.i.d., Voltaren gel 4 times daily, diltiazem 180 mg, hydrocodone 7.5 mg 1 p.o. t.i.d., Lasix 20 mg, potassium 10 mEq. PAIN CLINIC ASSESSMENT/PQRS: 1. The patient does have some pain and discomfort in his low back. Has some pain in the right leg, which is improved. Has had a right knee replacement. 2. The patient is not being treated for rheumatoid arthritis. 3. Height 5 feet 11 inches, weight 205 pounds, BMI is 29.3. 4. Vital signs: Blood pressure 135/89, heart rate 75, respiratory rate 16, room air saturation 92%, temperature 97.6. 5. Pain intensity 4-5/10. 6. Fall history: The patient has not fallen in the last 3 months. 7. Blood thinner: The patient is not on [place] [address] PAIN MANAGEMENT CONSULTATION Name: ELVIE ECHAVARRIA Room: [facility]#: [id number] Admission: 11/23/19 Attend Phys: Gina Jmienes MD Discharge: Date of : 40 Report #: [id number] 8. Hypertension: The patient is being treated for hypertension. 9. Opioids greater than 6 weeks: The patient receives medications from the pain clinic. 10. Risk assessment tool: Low for opioid use. 11. Functional assessment tool: Reviewed. 12. Recreational drug use: The patient denies. 13. Tobacco: The patient denies. 14. Alcohol: The patient denies. PHYSICAL EXAMINATION: GENERAL: The patient is a well-developed, well-nourished white male. Appears his stated age. He is alert and oriented x 3. His affect is appropriate. Speech is fluent. HEENT: Normocephalic, atraumatic. Extraocular eye muscles intact. Sclerae nonicteric. The patient is wearing a mask. PSYCHIATRIC: The patient is a very pleasant gentleman and loquacious. He is wearing glasses. NECK: Without adenopathy or JVD. HEART: Regular rate. History of atrial fibrillation. ABDOMEN: Nontender. LUNGS: Generally clear. EXTREMITIES: Upper extremity muscle strength judged to be 4+/5 for the major muscle groups in the upper extremity. The patient has some pain and discomfort in the lower portion of his back. Has some pains radiating down into the right leg, but different and improved from what he had prior to his surgery. Appears to be in the L4-L5/L5-S1 areas. IMPRESSION: 1. Chronic low back pain, status post pain pump removal 01/19/2018. 2. Status post back surgery for stenotic type history, the patient feels improved. 3. History of atrial fibrillation. 4. Myofascial pain. 5. History of myocardial infarct. 6. Hypertension. 7. Skin cancer. 8. Restless legs syndrome. 9. Cerebral aneurysm with continuing increasing size. RECOMMENDATIONS: We discussed treatment options with the patient. At this juncture, we will continue with his medications. He feels that the pain has improved after the surgery. He has not had any complications. He is up and ambulating. Feels that there is less pain radiating down to his leg. Still feels his medications are helpful. Rates his pain as a 4-5/10. We will continue with his hydrocodone 7.5 mg 1 p.o. t.i.d. We will also continue with the muscle relaxant, Soma. He will call us if he has any [place] [address] PAIN MANAGEMENT CONSULTATION Name: ELVIE ECHAVARRIA [facility] [id number] Admission: 11/23/19 Attend Phys: Gina Jimenes MD Discharge: Date of : 40 Report #: [id number] for his medications has been provided and sent to his pharmacy. He will also continue with Zanaflex 0.5 mg at bedtime. We would like to thank you for letting us participate in his care. We hope he continues to improve. By: [id number]. Henri Jimenes MD /[employer]
== END ==
LOC: M.PC 07:28
PROVIDERS: ATTEND Anesthesiology Pain Medicine
DX: G89.29 Other chronic pain (principal); M54.5 Low back pain; I10 Essential (primary) hypertension; I48.91 Unspecified atrial fibrillation; M79.18 Myalgia, other site; I25.2 Old myocardial infarction; G25.81 Restless legs syndrome; I67.1 Cerebral aneurysm, nonruptured; C44.90 Unspecified malignant neoplasm of skin, unspecified; Z98.890 Other specified postprocedural states; Z68.29 Body mass index [BMI] 29.0-29.9, adult; Z88.8 Allergy status to other drugs, medicaments and biological substances; Z79.891 Long term (current) use of opiate analgesic; Z79.899 Other long term (current) drug therapy

== ENCOUNTER → 2020-01-18 | Outpatient (CLI) | payer MEDICARE, OTHER | LOC: M.PC 08:48 | PROVIDERS: ATTEND Anesthesiology Pain Medicine | DX: M54.5 Low back pain (principal); G89.29 Other chronic pain; I10 Essential (primary) hypertension; G25.81 Restless legs syndrome; C44.90 Unspecified malignant neoplasm of skin, unspecified; I67.1 Cerebral aneurysm, nonruptured; M79.18 Myalgia, other site; Z88.8 Allergy status to other drugs, medicaments and biological substances; Z79.899 Other long term (current) drug therapy ==

== ENCOUNTER → 2020-03-14 | Outpatient (CLI) | payer MEDICARE, OTHER | LOC: M.PC 07:56 | PROVIDERS: ATTEND Anesthesiology Pain Medicine | DX: M25.561 Pain in right knee (principal); M54.5 Low back pain; G89.29 Other chronic pain; M79.10 Myalgia, unspecified site; I10 Essential (primary) hypertension; G25.81 Restless legs syndrome; C44.90 Unspecified malignant neoplasm of skin, unspecified; I67.1 Cerebral aneurysm, nonruptured; I25.2 Old myocardial infarction; Z98.1 Arthrodesis status; Z86.79 Personal history of other diseases of the circulatory system; Z88.8 Allergy status to other drugs, medicaments and biological substances ==

== ENCOUNTER → 2020-05-09 | Outpatient (CLI) | payer MEDICARE, OTHER | LOC: M.PC 07:45 | PROVIDERS: ATTEND Anesthesiology Pain Medicine | DX: M54.5 Low back pain (principal); I10 Essential (primary) hypertension; M79.18 Myalgia, other site; C44.90 Unspecified malignant neoplasm of skin, unspecified; I48.0 Paroxysmal atrial fibrillation; I25.2 Old myocardial infarction; I67.1 Cerebral aneurysm, nonruptured; G25.81 Restless legs syndrome; M25.561 Pain in right knee ==

== ENCOUNTER → 2020-06-12 | Outpatient (CLI) | payer MEDICARE, OTHER | LOC: M.NUC 06-07 13:38 | PROVIDERS: ATTEND Orthopaedic Surgery | DX: M25.561 Pain in right knee (principal); M25.461 Effusion, right knee; Z96.651 Presence of right artificial knee joint ==

== ENCOUNTER → 2020-06-29 | Outpatient (CLI) | payer MEDICARE, OTHER | LOC: M.PC 07:41 | PROVIDERS: ATTEND Anesthesiology Pain Medicine | DX: G89.29 Other chronic pain (principal); M54.5 Low back pain; I11.0 Hypertensive heart disease with heart failure; I50.9 Heart failure, unspecified; E11.9 Type 2 diabetes mellitus without complications; I48.91 Unspecified atrial fibrillation; J44.9 Chronic obstructive pulmonary disease, unspecified; I67.1 Cerebral aneurysm, nonruptured; M79.18 Myalgia, other site; C44.90 Unspecified malignant neoplasm of skin, unspecified; G25.81 Restless legs syndrome; M25.561 Pain in right knee; Z98.890 Other specified postprocedural states; Z68.30 Body mass index [BMI] 30.0-30.9, adult; Z88.8 Allergy status to other drugs, medicaments and biological substances; Z79.891 Long term (current) use of opiate analgesic; Z79.899 Other long term (current) drug therapy; Z87.891 Personal history of nicotine dependence ==

== ENCOUNTER → 2020-08-09 | Outpatient (CLI) | payer MEDICARE, OTHER ==
[2020-08-09 12:52] LABS: ABSOLUTE EOSINOPHILS 0.1 thou/uL (0.0-0.7); ABSOLUTE LYMPHOCYTES 0.9 thou/uL (0.8-5.3); ABSOLUTE MONOCYTES 0.5 thou/uL (0.0-1.2); ABSOLUTE NEUTROPHILS 4.7 thou/uL (1.6-8.1); BASOPHILS 0.6 %; EOSINOPHILS 2.4 %; HEMOGLOBIN 14.8 gm/dL (14.0-18.0); LYMPHOCYTES 13.5 %; MCH 30.5 pg (26.0-34.0); MCHC 34.3 g/dL (28.0-37.0); MCV 88.8 fL (80.0-100.0); MONOCYTES 8.3 %; MPV 6.1 fl. (7.2-11.1); NUCLEATED RBCS 0 /100WBC; PLATELET COUNT* 229 thou/uL (150-400); POLYS 75.2 %; RBC 4.84 mil/uL (4.50-6.00); RDW-CV 13.6 % (10.5-14.5); WBC 6.3 thou/uL (4.0-11.0)
[2020-08-09 13:52] LABS: ESR (SEDRATE) 5 mm/hr (0-20)
== END ==
LOC: M.LAB 12:20
PROVIDERS: ATTEND Orthopaedic Surgery
DX: M93.961 Osteochondropathy, unspecified, right lower leg (principal); I10 Essential (primary) hypertension

== ENCOUNTER → 2020-08-22 | Outpatient (CLI) | payer MEDICARE, OTHER | LOC: M.PC 07:50 | PROVIDERS: ATTEND Anesthesiology Pain Medicine | DX: M54.5 Low back pain (principal); G89.29 Other chronic pain; I67.1 Cerebral aneurysm, nonruptured; I25.2 Old myocardial infarction; I10 Essential (primary) hypertension; G25.81 Restless legs syndrome; I11.0 Hypertensive heart disease with heart failure; I50.9 Heart failure, unspecified; I48.91 Unspecified atrial fibrillation; J44.9 Chronic obstructive pulmonary disease, unspecified; Z79.899 Other long term (current) drug therapy; Z79.891 Long term (current) use of opiate analgesic; Z87.891 Personal history of nicotine dependence ==

== ENCOUNTER → 2020-10-17 | Outpatient (CLI) | payer MEDICARE, OTHER ==
[~2020-10-17] MED LIST changes: +COZAAR 25 MG TA25 M1 PO
== END ==
LOC: M.PC 08:05
PROVIDERS: ATTEND Anesthesiology Pain Medicine
DX: G89.29 Other chronic pain (principal); C44.90 Unspecified malignant neoplasm of skin, unspecified; I67.1 Cerebral aneurysm, nonruptured; I48.91 Unspecified atrial fibrillation; M79.18 Myalgia, other site; I25.2 Old myocardial infarction; I10 Essential (primary) hypertension; M25.561 Pain in right knee; G25.81 Restless legs syndrome; M48.00 Spinal stenosis, site unspecified

== ENCOUNTER → 2020-12-12 | Outpatient (CLI) | payer MEDICARE, OTHER | LOC: M.PC 07:40 | PROVIDERS: ATTEND Anesthesiology Pain Medicine | DX: M25.561 Pain in right knee (principal); I67.1 Cerebral aneurysm, nonruptured; M79.18 Myalgia, other site; I25.2 Old myocardial infarction; I11.0 Hypertensive heart disease with heart failure; G25.81 Restless legs syndrome; I50.9 Heart failure, unspecified; J44.9 Chronic obstructive pulmonary disease, unspecified; Z87.891 Personal history of nicotine dependence; Z88.8 Allergy status to other drugs, medicaments and biological substances ==

== ENCOUNTER → 2021-02-06 | Outpatient (CLI) | payer MEDICARE, OTHER | LOC: M.PC 07:46 | PROVIDERS: ATTEND Anesthesiology Pain Medicine | DX: M79.604 Pain in right leg (principal); M54.50 Low back pain, unspecified; I67.1 Cerebral aneurysm, nonruptured; I48.91 Unspecified atrial fibrillation; M79.18 Myalgia, other site; I11.0 Hypertensive heart disease with heart failure; I50.9 Heart failure, unspecified; G25.81 Restless legs syndrome; Z87.891 Personal history of nicotine dependence; Z88.8 Allergy status to other drugs, medicaments and biological substances ==

== ENCOUNTER → 2021-04-03 | Outpatient (CLI) | payer MEDICARE, OTHER ==
[~2021-04-03] MED LIST changes: +VITAMIN B-121000 MC2 PO
== END ==
LOC: M.PC 07:24
PROVIDERS: ATTEND Anesthesiology Pain Medicine
DX: M25.561 Pain in right knee (principal); M54.50 Low back pain, unspecified; M79.18 Myalgia, other site; I48.91 Unspecified atrial fibrillation; G25.81 Restless legs syndrome; I11.0 Hypertensive heart disease with heart failure; I50.9 Heart failure, unspecified; Z87.891 Personal history of nicotine dependence; Z88.8 Allergy status to other drugs, medicaments and biological substances; Z79.899 Other long term (current) drug therapy